=== PATIENT | female | born 1995 | race Caucasian/White ===

== ENCOUNTER → 2019-05-31 10:53 | Outpatient (BNVA) | payer MEDICAID, SELFPAY | PROVIDERS: Family Provider Registered Nurse; Visit Provider Social Worker | DX: F41.1 Generalized anxiety disorder (principal); F43.12 Post-traumatic stress disorder, chronic | CPT/HCPCS: 90834 ==

== ENCOUNTER → 2019-06-09 14:58 | Outpatient (BNVA) | payer MEDICAID, SELFPAY | PROVIDERS: Family Provider Registered Nurse; PCP Registered Nurse; Visit Provider Social Worker | DX: F41.1 Generalized anxiety disorder (principal); F43.12 Post-traumatic stress disorder, chronic | CPT/HCPCS: 90834 ==

== ENCOUNTER → 2019-08-02 12:37 | Outpatient (BNVA) | payer MEDICAID, SELFPAY | PROVIDERS: Family Provider Registered Nurse; PCP Registered Nurse; Visit Provider Social Worker | DX: F41.1 Generalized anxiety disorder (principal); F43.12 Post-traumatic stress disorder, chronic | CPT/HCPCS: 90834 ==

== ENCOUNTER → 2019-08-18 10:21 | Outpatient (BNVA) | payer MEDICAID, SELFPAY | PROVIDERS: Family Provider Registered Nurse; PCP Registered Nurse; Visit Provider Social Worker | DX: F41.1 Generalized anxiety disorder (principal); F43.12 Post-traumatic stress disorder, chronic | CPT/HCPCS: 90834 ==

== ENCOUNTER → 2019-09-01 08:00 | Outpatient (BNVA) | payer MEDICAID, SELFPAY | PROVIDERS: Family Provider Registered Nurse; PCP Registered Nurse; Visit Provider Social Worker | DX: F41.1 Generalized anxiety disorder (principal); F43.12 Post-traumatic stress disorder, chronic | CPT/HCPCS: 90834 ==

== ENCOUNTER → 2019-09-20 08:02 | Outpatient (BNVA) | payer MEDICAID, SELFPAY | PROVIDERS: Family Provider Registered Nurse; PCP Registered Nurse; Visit Provider Social Worker | DX: F41.1 Generalized anxiety disorder (principal); F43.12 Post-traumatic stress disorder, chronic | CPT/HCPCS: 90834 ==

== ENCOUNTER → 2019-10-04 08:03 | Outpatient (BNVA) | payer MEDICAID, SELFPAY | PROVIDERS: Family Provider Registered Nurse; PCP Registered Nurse; Visit Provider Social Worker | DX: F41.1 Generalized anxiety disorder (principal); F43.12 Post-traumatic stress disorder, chronic | CPT/HCPCS: 90834 ==

== ENCOUNTER → 2020-01-05 08:50 | Outpatient (BNVA) | payer MEDICAID, SELFPAY | PROVIDERS: Family Provider Registered Nurse; PCP Registered Nurse; Visit Provider Counselor Professional | DX: F41.1 Generalized anxiety disorder (principal); F43.12 Post-traumatic stress disorder, chronic | CPT/HCPCS: 90834 ==

== ENCOUNTER → 2020-01-19 08:35 | Outpatient (BNVA) | payer MEDICAID, SELFPAY | PROVIDERS: Family Provider Registered Nurse; PCP Registered Nurse; Visit Provider Counselor Professional | DX: F41.1 Generalized anxiety disorder (principal); F31.9 Bipolar disorder, unspecified | CPT/HCPCS: 90832 ==

== ENCOUNTER → 2020-02-01 09:49 | Outpatient (BNVA) | payer MEDICAID, SELFPAY | PROVIDERS: Family Provider Registered Nurse; PCP Registered Nurse; Visit Provider Psychiatry & Neurology Psychiatry | DX: F31.32 Bipolar disorder, current episode depressed, moderate; F43.10 Post-traumatic stress disorder, unspecified; F41.0 Panic disorder [episodic paroxysmal anxiety] | CPT/HCPCS: 90792 ==

== ENCOUNTER → 2020-03-03 07:58 | Outpatient (BNVA) | payer MEDICAID, SELFPAY | PROVIDERS: Family Provider Registered Nurse; PCP Registered Nurse; Visit Provider Psychiatry & Neurology Psychiatry | DX: F31.32 Bipolar disorder, current episode depressed, moderate (principal); Z72.820 Sleep deprivation; F43.10 Post-traumatic stress disorder, unspecified | CPT/HCPCS: 99213 ==

== ENCOUNTER → 2020-09-04 07:49 | Outpatient (BNVA) | payer MEDICAID, SELFPAY | PROVIDERS: Family Provider Registered Nurse; PCP Registered Nurse; Visit Provider Psychiatry & Neurology Psychiatry | DX: F43.10 Post-traumatic stress disorder, unspecified (principal); F31.32 Bipolar disorder, current episode depressed, moderate; Z72.820 Sleep deprivation | CPT/HCPCS: 99213 ==

== ENCOUNTER → 2020-10-31 14:45 | Outpatient (BNVA) | payer OTHER, SELFPAY | PROVIDERS: Family Provider Registered Nurse; PCP Registered Nurse; Visit Provider Psychiatry & Neurology Psychiatry | DX: F31.32 Bipolar disorder, current episode depressed, moderate (principal); Z72.820 Sleep deprivation; F43.10 Post-traumatic stress disorder, unspecified | CPT/HCPCS: 99214 ==

== ENCOUNTER 2020-11-11 11:23 | Emergency (ER) | payer MEDICAID, SELFPAY ==
[2020-11-11 11:37] VITALS: BP 125/88; PULSE 70; RESP 18; TEMP 36.7; O2SAT 99; BMI 25.6
--- NOTE | 2020-11-11 11:45 | W.ED.GENADLT ---
HPI - General Adult General: Chief complaint: Weakness Stated complaint: DIZZY, TIRED Time Seen by Provider: 11/11/20 11:34 Source: patient Mode of arrival: ambulatory Limitations: no limitations History of Present Illness: HPI narrative: Patient is a 25-year-old female here for concerns of possible carbon monoxide exposure. Patient states she was staying at a friend's house with two other girlfriends and when they awoke this morning they all had complaints of a headache, dizziness, and weakness. They later realized that a gas stove had been left on all night. Patient is alert and oriented upon arrival and ambulating to her room without difficulty. Onset (ago): hour(s) Severity: mild Associated symptoms: Reports headache(s); Deny chest pain, dyspnea, nausea, rash, palpitations, syncope or vomiting Treatments prior to arrival: none Review of Systems Const: Reports: fatigue; Denies: fever(s), chills or body aches Eyes: Denies: change in vision, blurry vision, photophobia, eye discomfort, eye discharge, floaters or seeing flashes ENMT: Denies: throat pain, odynophagia, nasal discharge or nasal congestion Card: Reports: lightheadedness; Denies: chest pain, palpitations, irregular heart rhythm, edema, syncope, pre-syncope, dyspnea on exertion or leg pain with exertion Resp: Denies: dyspnea, productive cough, non-productive cough or chest congestion GI: Denies: abdominal pain, nausea, vomiting or diarrhea Musc: Denies: neck pain or back pain Skin/Breast: Denies: rash Neuro: Reports: headache(s), dizziness and other; Denies: numbness in extremities, weakness in extremities, sensory changes, lack of coordination or difficulty walking PFS ED PFSH: Medical History Asthma Diagnosed as a child and she used inhalers and nebulizers. Denies any hospitalizations or intubations for asthma. Uses her inhaler once or twice a month-worse during allergy season and when it is very hot. Bipolar disorder And PTSD diagnosed in 2019 managed by behavioral health care on medication. She also does therapy there. 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 Patient was 32 weeks and presented to labor and delivery in labor and made cervical change from 5 cm to 8 cm in one hour. As baby was breech delivery was performed. Abnormal uterus was noted at time of . Right cavity of uterus appeared to be not present and only the left side of the uterine cavity was noted. Normal tubes and ovaries bilaterally. Baby girl weighing 3 lbs. 3 oz. was born and should to [place]. Baby's head was laterally compressed likely secondary to the cavity shape. Hx of tonsillectomy (~2009) And Adinoids Family History Grandmother Uterine cancer Paternal--dx age 30's Diabetes paternal Family/Other Uterine cancer Paternal Aunt---dx age 40's Family/Other Uterine cancer Paternal Cousin--dx age 20's Grandfather Stroke Paternal Diabetes paternal Father Hypertension Denies family history of Colon cancer Ovarian cancer Heart disease Hypercholesteremia Breast cancer Thyroid disease Female Reproductive History: Date of last menstrual period: 11/06/20 Physical Exam Const: COMMON NORMALS: no acute distress, average body habitus, patient oriented x3, no limitations, healthy appearing, alert and well nourished GENERAL APPEARANCE: cooperative ORIENTATION/CONSCIOUSNESS: Yes awake, Yes oriented to person, Yes oriented to place and Yes oriented to time HENMT: COMMON NORMALS: normocephalic and atraumatic HEAD & SCALP: normocephalic and atraumatic Eye: GENERAL EYE: appearance normal, both eyes and all related structures Resp: COMMON NORMALS: normal respiratory effort and clear to auscultation bilaterally AUSCULTATION: clear to auscultation bilaterally Cardio: COMMON NORMALS: regular rate and regular rhythm RATE: regular rate RHYTHM: regular rhythm Extremity: GENERAL: Yes normal exam except as noted Neuro: COMMON NORMALS: patient oriented x3 SENSORIUM/ORIENTATION: Yes alert, Yes oriented to person, Yes oriented to place and Yes oriented to time Skin: COMMON NORMALS: no rashes or lesions noted GENERAL SKIN EXAM: no rashes or lesions noted Course Vital Signs: Vital signs: Vital Signs Temperature 98.0 F 11/11/20 11:37 Pulse Rate 82 11/11/20 11:51 Respiratory Rate 18 11/11/20 11:37 Blood Pressure 115/77 11/11/20 11:51 Pulse Oximetry 97 11/11/20 11:51 MDM - General Adult MDM Narrative: Medical decision making narrative: Patient's ABG is non-concerning. She has a normal carboxyhemoglobin level. Discussed with both Dr. Elkins and Dr. Sierra who both do not feel any further management is indicated from the ED. Patient is allowed home with return to ED precautions. Lab Data: Attestation: I reviewed the patient's lab results. Labs: Lab Results 11/11/20 Range/Units 11:40 Specimen Type Arterial Sample Site Radial, left ABG pH 7.46 H (7.35-7.45) ABG pCO2 34.3 L (35-45) mmHg ABG pO2 121.0 H (80.0-100.0) mmH g ABG HCO3 24.2 (22-26) mmol/L ABG O2 Saturation 99.6 ABG Base Excess 0.8 (-2.0-2.0) mmol/ L Jassi Test Pos A-a O2 Gradient Not Reportable Hematocrit 43.6 (37-47) % Hgb O2 Saturation 97.7 (95-100) % Carboxyhemoglobin 1.2 (0.4-20.1) %THgb Methemoglobin 0.7 (0.4-1.5) % Total Hemoglobin 14.2 (12-16) g/dL Sodium 143.0 (131-143) mmol/L Potassium 4.0 (3.5-5.0) mmol/L Glucose 102.0 (70-115) mg/dL Ionized Calcium 1.1 (1.1-1.4) mmol/L O2 Delivery Device Room air FiO2 21.0 % 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
[2020-11-11 11:51] VITALS: BP 115/77; PULSE 82; O2SAT 97
[2020-11-11 11:52] LABS: ABG PCO2 34.3 mmHg (35-45); ABG PH Result 7.46 (7.35-7.45); Arterial Blood Gas Hematocrit 43.6 % (37-47); Base Excess ABG 0.8 mmol/L (-2.0-2.0); Blood Gas Allen Test Pos; Blood Gas Operator Identificat MONRO; Blood Gas Sample Site Radial, left; Blood Gas Sample Type Arterial; Carboxyhemoglobin 1.2 %THgb (0.4-20.1); HCO3 ABG 24.2 mmol/L (22-26); HGB O2 Sat 97.7 % (95-100); Ionized Calcium Level - ABG 1.1 mmol/L (1.1-1.4); Methemoglobin 0.7 % (0.4-1.5); Oxygen Device ROOM AIR; Oxygen Saturation ABG 99.6; Total Hemoglobin 14.2 g/dL (12-16)
== END 2020-11-11 13:10 | disposition home or self-care (01) ==
PROVIDERS: Emergency Provider Physician Assistant; PCP Registered Nurse
DX: Z77.29 Contact with and (suspected) exposure to other hazardous substances (principal)
CPT/HCPCS: 36600; 80051; 82330; 82805; 99282

== ENCOUNTER → 2020-11-21 15:47 | Outpatient (BNVA) | payer MEDICAID, SELFPAY | PROVIDERS: PCP Registered Nurse; Visit Provider Obstetrics & Gynecology | DX: R87.612 Low grade squamous intraepithelial lesion on cytologic smear of cervix (LGSIL) (principal) | CPT/HCPCS: 81025; 88305 ==

== ENCOUNTER → 2021-01-23 14:18 | Outpatient (BNVA) | payer OTHER, MEDICAID, SELFPAY | PROVIDERS: PCP Registered Nurse; Visit Provider Counselor Mental Health | DX: F41.1 Generalized anxiety disorder (principal); F31.9 Bipolar disorder, unspecified | CPT/HCPCS: 90834 ==

== ENCOUNTER → 2021-01-30 08:03 | Outpatient (BNVA) | payer OTHER, SELFPAY | PROVIDERS: PCP Registered Nurse; Visit Provider Psychiatry & Neurology Psychiatry | DX: F31.32 Bipolar disorder, current episode depressed, moderate (principal); F43.10 Post-traumatic stress disorder, unspecified | CPT/HCPCS: 99214 ==

== ENCOUNTER → 2021-02-06 15:17 | Outpatient (BNVA) | payer OTHER, SELFPAY | PROVIDERS: PCP Registered Nurse; Visit Provider Counselor Mental Health | DX: F41.1 Generalized anxiety disorder (principal); F31.9 Bipolar disorder, unspecified | CPT/HCPCS: 90834 ==

== ENCOUNTER → 2021-02-14 08:47 | Outpatient (BNVA) | payer OTHER, SELFPAY | PROVIDERS: PCP Registered Nurse; Visit Provider Counselor Mental Health | DX: F41.1 Generalized anxiety disorder (principal); F31.0 Bipolar disorder, current episode hypomanic | CPT/HCPCS: 90834 ==

== ENCOUNTER → 2021-02-16 11:14 | Outpatient (BNVA) | payer OTHER, SELFPAY | PROVIDERS: PCP Registered Nurse; Visit Provider Psychiatry & Neurology Psychiatry | DX: F31.32 Bipolar disorder, current episode depressed, moderate (principal); F43.10 Post-traumatic stress disorder, unspecified | CPT/HCPCS: 96372; 99214 ==

== ENCOUNTER → 2021-02-28 11:45 | Outpatient (BNVA) | payer OTHER, SELFPAY | PROVIDERS: PCP Registered Nurse; Visit Provider Counselor Mental Health | DX: F41.1 Generalized anxiety disorder (principal); F31.9 Bipolar disorder, unspecified | CPT/HCPCS: 90834 ==

== ENCOUNTER → 2021-03-07 11:49 | Outpatient (BNVA) | payer OTHER, SELFPAY | PROVIDERS: PCP Registered Nurse; Visit Provider Counselor Mental Health | DX: F41.1 Generalized anxiety disorder (principal); F31.9 Bipolar disorder, unspecified | CPT/HCPCS: 90837; 90834 ==

== ENCOUNTER → 2021-03-14 13:46 | Outpatient (BNVA) | payer OTHER, SELFPAY | PROVIDERS: PCP Registered Nurse; Visit Provider Counselor Mental Health | DX: F41.1 Generalized anxiety disorder (principal); F31.9 Bipolar disorder, unspecified | CPT/HCPCS: 90837; 90834 ==

== ENCOUNTER → 2021-03-16 12:15 | Outpatient (BNVA) | payer OTHER, SELFPAY | PROVIDERS: PCP Registered Nurse; Visit Provider Psychiatry & Neurology Psychiatry | DX: F31.32 Bipolar disorder, current episode depressed, moderate (principal); F43.10 Post-traumatic stress disorder, unspecified | CPT/HCPCS: 96372; 99214 ==

== ENCOUNTER → 2021-03-22 10:46 | Outpatient (BNVA) | payer OTHER, SELFPAY | PROVIDERS: PCP Registered Nurse; Visit Provider Counselor Mental Health | DX: F41.1 Generalized anxiety disorder (principal); F31.9 Bipolar disorder, unspecified | CPT/HCPCS: 90837; 90834 ==

== ENCOUNTER → 2021-04-05 08:47 | Outpatient (BNVA) | payer OTHER, SELFPAY | PROVIDERS: PCP Registered Nurse; Visit Provider Counselor Mental Health | DX: F41.1 Generalized anxiety disorder (principal); F31.9 Bipolar disorder, unspecified | CPT/HCPCS: 90837; 90834 ==

== ENCOUNTER → 2021-04-19 08:45 | Outpatient (BNVA) | payer OTHER, SELFPAY | PROVIDERS: PCP Registered Nurse; Visit Provider Counselor Mental Health | DX: F41.1 Generalized anxiety disorder (principal); F31.9 Bipolar disorder, unspecified | CPT/HCPCS: 90834 ==

== ENCOUNTER → 2021-04-20 09:13 | Outpatient (BNVA) | payer OTHER, SELFPAY | PROVIDERS: PCP Registered Nurse; Visit Provider Psychiatry & Neurology Psychiatry | DX: F31.32 Bipolar disorder, current episode depressed, moderate (principal); F43.10 Post-traumatic stress disorder, unspecified | CPT/HCPCS: 96372; 99214 ==

== ENCOUNTER → 2021-05-01 07:46 | Outpatient (BNVA) | payer OTHER, SELFPAY | PROVIDERS: PCP Registered Nurse; Visit Provider Counselor Mental Health | DX: F31.32 Bipolar disorder, current episode depressed, moderate (principal) | CPT/HCPCS: 90834 ==

== ENCOUNTER → 2021-05-09 09:46 | Outpatient (BNVA) | payer OTHER, SELFPAY | PROVIDERS: PCP Registered Nurse; Visit Provider Counselor Mental Health | DX: F41.1 Generalized anxiety disorder (principal); F31.9 Bipolar disorder, unspecified | CPT/HCPCS: 90837; 90834 ==

== ENCOUNTER → 2021-05-16 07:52 | Outpatient (BNVA) | payer OTHER, SELFPAY | PROVIDERS: PCP Registered Nurse; Visit Provider Counselor Mental Health | DX: F41.1 Generalized anxiety disorder (principal); F31.9 Bipolar disorder, unspecified | CPT/HCPCS: 90837; 90834 ==

== ENCOUNTER → 2021-05-24 11:14 | Outpatient (BNVA) | payer OTHER, SELFPAY | PROVIDERS: PCP Registered Nurse; Visit Provider Psychiatry & Neurology Psychiatry | DX: F31.32 Bipolar disorder, current episode depressed, moderate (principal); F43.10 Post-traumatic stress disorder, unspecified | CPT/HCPCS: 96372; 99213 ==

== ENCOUNTER → 2021-05-25 09:45 | Outpatient (BNVA) | payer OTHER, SELFPAY | PROVIDERS: PCP Registered Nurse; Visit Provider Counselor Mental Health | DX: F41.1 Generalized anxiety disorder (principal); F31.9 Bipolar disorder, unspecified | CPT/HCPCS: 90837; 90834 ==

== ENCOUNTER → 2021-06-04 07:46 | Outpatient (BNVA) | payer OTHER, SELFPAY | PROVIDERS: PCP Registered Nurse; Visit Provider Counselor Mental Health | DX: F31.32 Bipolar disorder, current episode depressed, moderate (principal) | CPT/HCPCS: 90834 ==

== ENCOUNTER → 2021-06-11 08:44 | Outpatient (BNVA) | payer OTHER, SELFPAY | PROVIDERS: PCP Registered Nurse; Visit Provider Counselor Mental Health | DX: F31.32 Bipolar disorder, current episode depressed, moderate (principal) | CPT/HCPCS: 90837; 90834 ==

== ENCOUNTER → 2021-06-21 08:44 | Outpatient (BNVA) | payer OTHER, SELFPAY | PROVIDERS: PCP Registered Nurse; Visit Provider Counselor Mental Health | DX: F31.32 Bipolar disorder, current episode depressed, moderate (principal); F42.9 Obsessive-compulsive disorder, unspecified | CPT/HCPCS: 90834 ==

== ENCOUNTER → 2021-06-22 11:11 | Outpatient (BNVA) | payer OTHER, SELFPAY | PROVIDERS: PCP Registered Nurse; Visit Provider Psychiatry & Neurology Psychiatry | DX: F43.10 Post-traumatic stress disorder, unspecified (principal); Z03.89 Encounter for observation for other suspected diseases and conditions ruled out; Z79.899 Other long term (current) drug therapy; F31.32 Bipolar disorder, current episode depressed, moderate | CPT/HCPCS: 80053; 80061; 83036; 84443; 85025; 99214 ==

== ENCOUNTER → 2021-07-06 07:46 | Outpatient (BNVA) | payer OTHER, SELFPAY | PROVIDERS: PCP Registered Nurse; Visit Provider Counselor Mental Health | DX: F31.32 Bipolar disorder, current episode depressed, moderate (principal) | CPT/HCPCS: 90834 ==

== ENCOUNTER → 2021-07-12 08:42 | Outpatient (BNVA) | payer OTHER, SELFPAY | PROVIDERS: PCP Registered Nurse; Visit Provider Counselor Mental Health | DX: F31.32 Bipolar disorder, current episode depressed, moderate (principal) | CPT/HCPCS: 90834 ==

== ENCOUNTER → 2021-07-23 09:46 | Outpatient (BNVA) | payer OTHER, SELFPAY | PROVIDERS: PCP Registered Nurse; Visit Provider Counselor Mental Health | DX: F31.32 Bipolar disorder, current episode depressed, moderate (principal) | CPT/HCPCS: 90834 ==

== ENCOUNTER → 2021-08-17 10:46 | Outpatient (BNVA) | payer OTHER, SELFPAY | PROVIDERS: PCP Registered Nurse; Visit Provider Counselor Mental Health | DX: F31.32 Bipolar disorder, current episode depressed, moderate (principal) | CPT/HCPCS: 90837; 90834 ==

== ENCOUNTER → 2021-08-31 10:47 | Outpatient (BNVA) | payer OTHER, SELFPAY | PROVIDERS: PCP Registered Nurse; Visit Provider Counselor Mental Health | DX: F31.32 Bipolar disorder, current episode depressed, moderate (principal) | CPT/HCPCS: 90834 ==

== ENCOUNTER → 2021-09-04 10:43 | Outpatient (BNVA) | payer OTHER, SELFPAY | PROVIDERS: PCP Registered Nurse; Visit Provider Psychiatry & Neurology Psychiatry | DX: F31.32 Bipolar disorder, current episode depressed, moderate (principal); Z03.89 Encounter for observation for other suspected diseases and conditions ruled out; Z79.899 Other long term (current) drug therapy | CPT/HCPCS: 99214 ==

== ENCOUNTER → 2021-09-07 10:45 | Outpatient (BNVA) | payer OTHER, SELFPAY | PROVIDERS: PCP Registered Nurse; Visit Provider Counselor Mental Health | DX: F43.10 Post-traumatic stress disorder, unspecified (principal); F31.32 Bipolar disorder, current episode depressed, moderate | CPT/HCPCS: 90834 ==

== ENCOUNTER → 2021-09-14 11:46 | Outpatient (BNVA) | payer OTHER, SELFPAY | PROVIDERS: PCP Registered Nurse; Visit Provider Counselor Mental Health | DX: F43.12 Post-traumatic stress disorder, chronic (principal); F31.32 Bipolar disorder, current episode depressed, moderate; F43.10 Post-traumatic stress disorder, unspecified | CPT/HCPCS: 90834 ==

== ENCOUNTER → 2021-09-21 10:45 | Outpatient (BNVA) | payer OTHER, SELFPAY | PROVIDERS: PCP Registered Nurse; Visit Provider Counselor Mental Health | DX: F43.12 Post-traumatic stress disorder, chronic (principal); F31.32 Bipolar disorder, current episode depressed, moderate; F43.10 Post-traumatic stress disorder, unspecified | CPT/HCPCS: 90837; 90834 ==

== ENCOUNTER → 2021-09-28 08:45 | Outpatient (BNVA) | payer OTHER, SELFPAY | PROVIDERS: PCP Registered Nurse; Visit Provider Counselor Mental Health | DX: F31.32 Bipolar disorder, current episode depressed, moderate (principal); F43.12 Post-traumatic stress disorder, chronic | CPT/HCPCS: 90834 ==

== ENCOUNTER → 2021-10-05 10:46 | Outpatient (BNVA) | payer OTHER, MEDICAID, SELFPAY | PROVIDERS: PCP Registered Nurse; Visit Provider Counselor Mental Health | DX: F31.32 Bipolar disorder, current episode depressed, moderate (principal) | CPT/HCPCS: 90834 ==

== ENCOUNTER 2021-10-07 16:23 | Emergency (ER) | payer MEDICAID, SELFPAY ==
[2021-10-07 16:41] VITALS: BP 118/81; PULSE 120; RESP 16; TEMP 37.4; O2SAT 99; BMI 28.7
--- NOTE | 2021-10-07 17:05 | ED_ITS ---
HPI - Skin/Abscess/Foreign Bdy General: Chief complaint: Skin/Abscess/Foreign Body Stated complaint: Says she has a cyst on her tailbone Time Seen by Provider: 10/07/21 17:04 History of Present Illness: 26-year-old female comes in today with complaints of tenderness and pain to the cleft of the left buttocks. Patient was seen 2 days ago and started on Augmentin and has had minimal relief since that time. Patient appears nontoxic. Patient appears in moderate pain. Associated symptoms: Deny fever(s) Review of Systems General: Reports: 10 or more systems reviewed and unremarkable except in HPI and below Const: Reports: malaise; Denies: fever(s) Card: Denies: chest pain Resp: Denies: dyspnea Musc: Denies: neck pain Skin/Breast: Reports: erythema PFS ED PFSH: Medical History (Updated 10/07/21 @ 17:37 by WALTER Bustamante) Asthma Diagnosed as a child and she used inhalers and nebulizers. Denies any hospitalizations or intubations for asthma. Uses her inhaler once or twice a month-worse during allergy season and when it is very hot. Bipolar disorder And PTSD diagnosed in 2019 managed by behavioral health care on medication. She also does therapy there. 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 Patient was 32 weeks and presented to labor and delivery in labor and made cervical change from 5 cm to 8 cm in one hour. As baby was breech delivery was performed. Abnormal uterus was noted at time of . Right cavity of uterus appeared to be not present and only the left side of the uterine cavity was noted. Normal tubes and ovaries bilaterally. Baby girl weighing 3 lbs. 3 oz. was born and should to [place]. Baby's head was laterally compressed likely secondary to the cavity shape. Hx of tonsillectomy (~2009) And Adinoids Family History Grandmother Uterine cancer Paternal--dx age 30's Diabetes paternal Family/Other Uterine cancer Paternal Aunt---dx age 40's Family/Other Uterine cancer Paternal Cousin--dx age 20's Grandfather Stroke Paternal Diabetes paternal Father Hypertension Denies family history of Colon cancer Ovarian cancer Heart disease Hypercholesteremia Breast cancer Thyroid disease Social History (Updated 04/20/21 @ 09:30 by Kennedi Ron) Smoking and tobacco status: current every day smoker Female Reproductive History: Date of last menstrual period: 09/02/21 Physical Exam Const: COMMON NORMALS: alert HENMT: HEAD & SCALP: normal to inspection Neck/C-Spine: COMMON NORMALS: full ROM Resp: COMMON NORMALS: normal respiratory effort and clear to auscultation bilaterally AUSCULTATION: clear to auscultation bilaterally Cardio: COMMON NORMALS: regular rate RATE: regular rate GI: COMMON NORMALS: non-tender Back/Pelvis: COMMON NORMALS: thoracic and lumbar spine normal to inspection Extremity: COMMON NORMALS: normal to inspection Neuro: SENSORIUM/ORIENTATION: Yes alert Skin: GENERAL SKIN EXAM: erythema (Left cleft of buttocks approximately 5 cm, central fluctuance) Procedures Abscess I/D Site: hung-rectal (Left cleft of buttock) Side (if applicable): left Local Anesthetic: lidocaine 2% Amount of anesthesia used (mL): 5 Technique: incised with #11 blade Amount of fluid expressed (mL): 4 Irrigation: Yes Packing used?: none Course Vital Signs: Vital signs: Vital Signs Temperature 99.3 F 10/07/21 16:41 Pulse Rate 120 H 10/07/21 16:41 Respiratory Rate 16 10/07/21 16:41 Blood Pressure 118/81 10/07/21 16:41 Pulse Oximetry 99 10/07/21 16:41 MDM - Skin/Abscess/Foreign Bdy Medicial Decision Making 26-year-old female comes in today with redness and tenderness to the left cleft of the buttocks. On exam we know an area of erythema approximately 5 cm with some central fluctuance. Differential diagnosis includes abscess, pilonidal cyst, cellulitis. Under local anesthetic an incision was made and purulent drainage was discharged from the site. Mild bleeding was noted. Patient will be added Bactrim to her Augmentin for further coverage of staph. Patient was given a dose of hydrocodone. Recommend use Tylenol and ibuprofen for pain. Return to ER for worsening symptoms or new concerns. Discharge Plan Discharge Patient Disposition: Home Clinical Impression: Abscess of buttock, left Condition: Stable Prescriptions: New Bactrim DS 800-160 mg tablet 1 tab PO BID Qty: 10 0RF No Action trazodone 50 mg tablet 50 mg PO BEDTIME PRN (Reason: sleep) 30 Days Qty: 30 3RF amoxicillin-pot clavulanate 875-125 mg tablet 1 tab PO Q12H 10 Days Qty: 20 0RF hydrocodone-acetaminophen 5-325 mg tablet 1 tab PO Q8H PRN (Reason: pain) 5 Days Qty: 10 0RF Discharge Orders: Discharge ED (Routine); Ordered 10/07/21 Ordered By: Lance Mitchell Referrals: Luci Roque FNP [Primary Care Provider] - Discharge Diet: Usual diet Discharge Activity: Increase activity as tolerated Patient Instructions: Abscess Incision and Drainage (DC), Opioid Safety Activity Restrictions/Additional Instructions: Home and rest. Drink plenty of fluids. Use acetaminophen and ibuprofen to control pain. Use hydrocodone for severe pain. Follow-up with primary care for further instruction. Return to ER for new concerns. Coding Level of Care Code ED [employer] for Sergei Martinez
[2021-10-07] MEDS: sulfamethoxazole-trimeth DS 160-800 mg Tablet 1 TAB PO (17:50)
[2021-10-07] MEDS: HYDROcodone-acetaminophen 5-325 mg Tablet 1 TAB PO (17:50)
[2021-10-07 17:54] VITALS: BP 126/81; PULSE 96; RESP 18; TEMP 36.9; O2SAT 96
== END 2021-10-07 17:56 | disposition home or self-care (01) ==
PROVIDERS: Emergency Provider Nurse Practitioner Family; PCP Registered Nurse
DX: L02.31 Cutaneous abscess of buttock (principal)
CPT/HCPCS: 10060; 99283

== ENCOUNTER → 2021-11-13 14:39 | Outpatient (BNVA) | payer MEDICAID, SELFPAY | PROVIDERS: PCP Registered Nurse; Visit Provider Surgery | DX: L05.91 Pilonidal cyst without abscess (principal) | CPT/HCPCS: 99203 ==

== ENCOUNTER 2021-12-03 08:41 | Day surgery (SDC) | payer MEDICAID, SELFPAY ==
[2021-11-30 10:27] VITALS: BMI 29.2
[2021-12-03] VITALS (7 sets, daily range): BP systolic 97–125; BP diastolic 63–85; PULSE 78–98; RESP 12–18; TEMP 36.2–36.4; O2SAT 94–100
--- NOTE | 2021-12-03 08:56 | ANES.PREANE2 ---
Pre-Anesthetic Assessment Height/Weight: Height 1.57 m Weight 72.575 kg Preop Diagnosis: Pilonidal cyst Operation Date: 12/03/21 10:15 Proposed Procedures p Pilonidal Cystectomy 92563,L05.91(Not Applicable) - Yanick Warren DO Familial anesthetic complications: None Was Beta Mehnaz taken within 24 hours: N/A Was Clonidine taken within 24 hours: N/A Social Tobacco and No alcohol Exam alert, oriented x 3 and regular rate & rhythm diminished b/l Airway Submandibular: within normal limits Cervical ROM: within normal limits Mallampati: Class I Dentition: full History/ROS No significant complaints Pulmonary Asthma CV/HEM None reported None reported Hepatic None reported GI None reported Metabolic None reported Musc/skel Cyst Neuropsych Bipolar and None reported Anesthetic Plan ASA status: 3 Anesthesia: Anesthesia Evaluation and General Other: We discussed risk and benefits of general anesthesia including PONV, sore throat (sometimes severe), corneal abrasion, positioning and peripheral nerve injuries, life threatening allergic reaction, post operative ICU admission requiring prolonged intubation, stroke, heart attack, , and rare incidences of recall. Patient consents to proceed with general anesthesia. Today I conducted a brief goal based motivational smoking cessation intervention with the patient. We discussed the health risk of prolonged tobacco use, as well as the risk of hung-operative tobacco use and its impact on wound healing/post-op infections. We discussed various options for cessation including medications PO, patches and gum, counseling. We discussed the value of a quit date. Patient appreciated counseling, all questions answered. Risk of > 500 ml blood loss (7ml/kg in children): No Medications/Allergies Home Medications Medication Instructions Recorded Confirmed Last Taken Type trazodone 50 mg tablet 50 mg PO BEDTIME PRN sleep 30 days 06/22/21 11/30/21 Unknown Rx #30 tabs albuterol sulfate 90 mcg/actuation 2 puff inhalation PRN PRN Wheezing 12/03/21 12/03/21 Unknown History aerosol inhaler (ProAir HFA) lorazepam 0.5 mg tablet 0.5 mg PO PRN PRN Anxiety 12/03/21 12/03/21 Unknown History Allergies Allergy/AdvReac Type Severity Reaction Status Date / Time house dust Allergy Intermediate wattery Verified 11/30/21 10:26 eyes lactose Allergy Intermediate diahrrea Verified 11/30/21 10:26 [facility] Anesthesia Medical History Asthma Diagnosed as a child and she used inhalers and nebulizers. Denies any hospitalizations or intubations for asthma. Uses her inhaler once or twice a month-worse during allergy season and when it is very hot. Bipolar disorder And PTSD diagnosed in 2019 managed by behavioral health care on medication. She also does therapy there. 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 Patient was 32 weeks and presented to labor and delivery in labor and made cervical change from 5 cm to 8 cm in one hour. As baby was breech delivery was performed. Abnormal uterus was noted at time of . Right cavity of uterus appeared to be not present and only the left side of the uterine cavity was noted. Normal tubes and ovaries bilaterally. Baby girl weighing 3 lbs. 3 oz. was born and should to [place]. Baby's head was laterally compressed likely secondary to the cavity shape. Hx of tonsillectomy (~2009) And Adinoids Family History Grandmother Uterine cancer Paternal--dx age 30's Diabetes paternal Family/Other Uterine cancer Paternal Aunt---dx age 40's Family/Other Uterine cancer Paternal Cousin--dx age 20's Grandfather Stroke Paternal Diabetes paternal Father Hypertension Denies family history of Colon cancer Ovarian cancer Heart disease Hypercholesteremia Breast cancer Thyroid disease Social History Smoking and tobacco status: current every day smoker Female Reproductive History Date of last menstrual period: 09/02/21 Data Anesthesia Cardiac Studies: No Data to Display
[2021-12-03 09:25] LABS: OR HCG Qualitative Urine Negative (Negative)
[2021-12-03] MEDS: sodium chloride 0.9% 1,000 ML 30 ML IV (09:33)
--- NOTE | 2021-12-03 10:10 | W.PM.OPSUD ---
Surgery/Procedure H&P Update DATE OF PROCEDURE: December 03, 2021 DATE H&P PERFORMED: 11/13/21 CHANGES TO PREVIOUS DOCUMENTATION: none PREOP DIAGNOSIS: Pilonidal cyst PLANNED PROCEDURE: Operation Date: 12/03/21 10:15 Proposed Procedures p Pilonidal Cystectomy 68990,L05.91(Not Applicable) - Yanick Warren DO
[2021-12-03] MEDS: ceFAZolin 2,000 MG in sodium chloride 0.9% (plus) 50 ML 100 MG IV (11:06)
--- NOTE | 2021-12-03 12:44 | PM.OP ---
Operative Report Date of procedure: December 03, 2021 Pre-op diagnosis: Preop Diagnosis Pilonidal cyst Post-op diagnosis: same Procedure done: Excision of pilonidal cyst Specimens removed/disposition: Pilonidal cyst Surgeon: Dr. Yanick Warren DO Estimated blood loss: 10 Complications: None apparent Brief History: This is a very pleasant 26-year-old female who presents to my office with an infected pilonidal cyst. She underwent antibiotic therapy. Excision is indicated. The risks and benefits were explained and documented Procedure: The area was inspected prepped and draped in the usual sterile fashion. A timeout was performed. All present were in agreement. 2% lidocaine with epinephrine was used to anesthetize the area around the pilonidal cyst. A 10 cm elliptical excision was performed down to the sacrum. The anal sphincter was avoided. Specimen was removed en bloc and sent to pathology. Bovie cautery was used for hemostasis. 0 Vicryl was then used in interrupted fashion to approximate the fascia. Fanny was placed down into the wound. 2-0 Vicryl was then used in interrupted fashion to approximate the dermis. 3-0 nylon was used to close the skin in a vertical mattress interrupted fashion. Hemostasis was noted. Bacitracin and sterile dressing was applied. Patient tolerated the procedure well.
--- NOTE | 2021-12-03 14:15 | ANE.PACU2 ---
Inpatient post-anesthesia follow up: Airway intact: Yes Vital signs: Temperature 97.5 F Pulse Rate 90 Respiratory Rate 17 Blood Pressure 107/85 Pulse Oximetry 98 Oxygen Delivery Me thod Room Air Oxygen Flow Rate Fraction of Inspir ed Oxygen Hydration adequate: Yes Nausea and vomiting: No Pain level: 1 Mental status: Baseline
== END 2021-12-03 14:09 | disposition home or self-care (01) ==
PROVIDERS: Anesthesiology; PCP Registered Nurse; Visit Provider Surgery
PROC: (CPT 11770; principal; 2021-12-03 10:05)
DX: L05.01 Pilonidal cyst with abscess (principal); F17.200 Nicotine dependence, unspecified, uncomplicated
CPT/HCPCS: 11770; 81025; 84703; 88304; J1100; J1170; J1200; J2250; J2405; J2704; J2710; J3010; J3490; J7030

== ENCOUNTER → 2021-12-18 11:15 | Outpatient (BNVA) | payer OTHER, SELFPAY | PROVIDERS: PCP Registered Nurse; Visit Provider Nurse Practitioner Women's Health | DX: R87.612 Low grade squamous intraepithelial lesion on cytologic smear of cervix (LGSIL) (principal) | CPT/HCPCS: 87624 ==

== ENCOUNTER → 2021-12-24 08:06 | Outpatient (BNVA) | payer OTHER, SELFPAY | PROVIDERS: PCP Registered Nurse; Visit Provider Surgery | DX: Z98.890 Other specified postprocedural states (principal) | CPT/HCPCS: 99213 ==

== ENCOUNTER → 2022-01-25 11:45 | Outpatient (BNVA) | payer OTHER, SELFPAY | PROVIDERS: PCP Registered Nurse; Visit Provider Nurse Practitioner Women's Health | DX: N92.6 Irregular menstruation, unspecified (principal) | CPT/HCPCS: 84702 ==

== ENCOUNTER 2022-03-14 06:19 | Emergency (ER) | payer MEDICAID, SELFPAY ==
[2022-03-14 06:23] VITALS: BP 108/99; PULSE 129; RESP 19; TEMP 36.6; O2SAT 99; BMI 27.4
--- NOTE | 2022-03-14 06:26 | ED_ITS ---
HPI - Abdominal Pain General: Chief Complaint: Abdominal Pain Stated Complaint: abd pain Time Seen by Provider: 03/14/22 06:23 History of Present Illness: 26-year-old female presents with abdominal pain. She reports is been going on and off for the last 2 days. It is located around her umbilicus. She denies any nausea vomiting fever chills. Patient denies any diarrhea or constipation. Patient reports the pain does not radiate but stays right in that area. Associated Symptoms: Denies chills, constipation, diarrhea, dysuria, fever(s), nausea and vomiting Related Data: Date of Last Menstrual Period: 09/02/21 Review of Systems Const: Denies: fever(s), chills or body aches Eyes: Denies: change in vision or blurry vision ENMT: Denies: throat pain or ear or mastoid pain Card: Denies: chest pain, palpitations or lightheadedness Resp: Denies: dyspnea, productive cough or chest congestion GI: Reports: abdominal pain; Denies: nausea, vomiting, diarrhea or constipation : Denies: flank pain, difficulty voiding or dysuria Musc: Denies: neck pain or back pain Skin/Breast: Denies: rash or pruritus Neuro: Denies: headache(s) or dizziness PFSH ED PFSH: Medical History (Updated 03/14/22 @ 07:56 by Flakito Reed DO) Asthma Diagnosed as a child and she used inhalers and nebulizers. Denies any hospitalizations or intubations for asthma. Uses her inhaler once or twice a month-worse during allergy season and when it is very hot. Bipolar disorder And PTSD diagnosed in 2019 managed by behavioral health care on medication. She also does therapy there. 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 Patient was 32 weeks and presented to labor and delivery in labor and made cervical change from 5 cm to 8 cm in one hour. As baby was breech delivery was performed. Abnormal uterus was noted at time of . Right cavity of uterus appeared to be not present and only the left side of the uterine cavity was noted. Normal tubes and ovaries bilaterally. Baby girl weighing 3 lbs. 3 oz. was born and should to [place]. Baby's head was laterally compressed likely secondary to the cavity shape. Hx of tonsillectomy (~2009) And Adinoids Family History Grandmother Uterine cancer Paternal--dx age 30's Diabetes paternal Family/Other Uterine cancer Paternal Aunt---dx age 40's Family/Other Uterine cancer Paternal Cousin--dx age 20's Grandfather Stroke Paternal Diabetes paternal Father Hypertension Denies family history of Colon cancer Ovarian cancer Heart disease Hypercholesteremia Breast cancer Thyroid disease Social History Smoking and tobacco status: current every day smoker Female Reproductive History: Date of last menstrual period: 09/02/21 Physical Exam Const: COMMON NORMALS: no acute distress, patient oriented x3, alert and well nourished HENMT: COMMON NORMALS: hearing grossly normal bilaterally Eye: COMMON NORMALS: EOMs intact bilaterally and conjunctivae normal CONJUNCTIVA: Yes conjunctivae normal Neck/C-Spine: COMMON NORMALS: full ROM and supple Chest: COMMONS NORMALS: normal inspection of the chest Resp: COMMON NORMALS: normal respiratory effort, No use of accessory muscles and clear to auscultation bilaterally AUSCULTATION: clear to auscultation bilaterally Cardio: COMMON NORMALS: regular rhythm RATE: tachycardic RHYTHM: regular rhythm GI: COMMON NORMALS: Soft to palpation PALPATION: Yes Soft to palpation and Yes Tenderness to palpation present (GI) Details: other (Periumbilical) : COMMON NORMALS: Yes no CVA tenderness BLADDER/KIDNEY EXAM: Yes no CVA tenderness and No CVA tenderness Back/Pelvis: COMMON NORMALS: no CVA tenderness GENERAL BACK: No CVA tenderness and No warmth Extremity: COMMON NORMALS: normal to inspection, full ROM and capillary refill normal Neuro: COMMON NORMALS: patient oriented x3, moves all extremities and no focal motor deficits SENSORIUM/ORIENTATION: Yes alert Psych: COMMON NORMALS: mental status grossly normal, cooperative and normal affect Skin: COMMON NORMALS: no rashes or lesions noted and turgor normal GENERAL SKIN EXAM: no rashes or lesions noted and turgor normal Course Vital Signs: Vital signs: Vital Signs Temperature 97.9 F 03/14/22 06:23 Pulse Rate 77 03/14/22 07:26 Respiratory Rate 16 03/14/22 07:26 Blood Pressure 131/67 03/14/22 07:26 Pulse Oximetry 99 03/14/22 07:26 Oxygen Delivery Me thod 03/14/22 07:26 MDM - Abdominal Pain Medical Decision Making Patient CT shows large segment segment of distal ileum thickening. We will treat as infectious to begin with I discussed with her the need of possible follow-up for GI and scope. Patient to be treated with Cipro Flagyl. Also provided with a small amount of pain medicine. Patient stable and discharged home Lab Data : 03/14/22 06:34 03/14/22 06:34 Labs/Radiology: Radiology Impressions Abdomen/Pelvis CT 03/14/22 07:08 IMPRESSION: 1. Moderate distal ileum wall thickening in the lower abdomen and pelvis-over a 20 cm segment (series 3 images 52 to 69). These findings may be related to infectious etiology or inflammatory bowel disease/Crohn's disease. 2. Associated small amount of free fluid in the pelvic cul-de-sac. COMMENTS: Consistent with the [employer]'s Incidental Findings Committee white paper (J Am Luciana Radiol 2018): Any incidental renal lesion less than 1 cm or classified as too small to characterize, or any incidental cystic renal lesion characterized as simple-appearing, is likely benign. No follow-up imaging is recommended for these lesions per consensus recommendations based on imaging criteria. Laboratory Results WBC 13.6 10^3/uL (4.0-10.0) H 03/14/22 06:34 RBC 4.84 10^6/uL (4.1-5.3) 03/14/22 06:34 Hgb 14.9 g/dL (11.5-15.3) 03/14/22 06:34 Hct 44.6 % (37.0-47.0) 03/14/22 06:34 MCV 92.1 fl (81-99) 03/14/22 06:34 MCH 30.8 pg (28.0-34.0) 03/14/22 06:34 MCHC 33.4 g/dL (30.0-36.0) 03/14/22 06:34 RDW 12.4 % (12.1-15.1) 03/14/22 06:34 Plt Count 313 10^3/cmm (130-400) 03/14/22 06:34 MPV 9.4 fL (7.4-10.4) 03/14/22 06:34 Neut % (Auto) 62.5 % 03/14/22 06:34 Lymph % (Auto) 26.5 % 03/14/22 06:34 [place] % (Auto) 7.8 % 03/14/22 06:34 Eos % (Auto) 2.7 % 03/14/22 06:34 Baso % (Auto) 0.3 % 03/14/22 06:34 Neut # (Auto) 8.53 10^3/uL (1.8-7.7) H 03/14/22 06:34 Lymph # (Auto) 3.6 10^3/uL (0.8-4.8) 03/14/22 06:34 [place] # (Auto) 1.1 10^3/uL (0.2-0.9) H 03/14/22 06:34 Eos # (Auto) 0.4 10^3/uL (0.0-0.8) 03/14/22 06:34 Baso # (Auto) 0.0 10^3/uL (0.0-0.1) 03/14/22 06:34 Nucleated RBC % (auto) 0 % 03/14/22 06:34 Nucleated RBCs # 0.0 /100WBC 03/14/22 06:34 Sodium 139 mmol/L (136-145) 03/14/22 06:34 Potassium 3.5 mmol/L (3.5-5.1) 03/14/22 06:34 Chloride 100 mmol/L (98-107) 03/14/22 06:34 Carbon Dioxide 26 mmol/L (22-29) 03/14/22 06:34 Anion Gap 16.5 (5-19) 03/14/22 06:34 BUN 8 mg/dL (6-20) 03/14/22 06:34 Creatinine 0.7 mg/dL (0.5-0.9) 03/14/22 06:34 GFR Calculation 102.0 mL/min (90-130) 03/14/22 06:34 Glucose 106 mg/dL (65-115) 03/14/22 06:34 Calculated Osmolality 287 mOsm/kg (285-295) 03/14/22 06:34 Calcium 9.3 mg/dL (8.5-10.5) 03/14/22 06:34 Total Bilirubin 0.3 mg/dL (0.15-1.2) 03/14/22 06:34 AST 15 U/L (0-32) 03/14/22 06:34 ALT 14 U/L (0-33) 03/14/22 06:34 Alkaline Phosphatase 68 U/L (35-105) 03/14/22 06:34 C-Reactive Protein 20.1 mg/L (0.0-4.9) H 03/14/22 06:34 Total Protein 7.3 g/dL (6.6-8.7) 03/14/22 06:34 Albumin 4.1 g/dL (3.5-5.2) 03/14/22 06:34 Globulin 3.2 g/dL (1.3-4.6) 03/14/22 06:34 Lipase 43 U/L (13-60) 03/14/22 06:34 HCG, Qual Negative (Negative) 03/14/22 06:34 Urine Color Yellow (Yellow) 03/14/22 06:34 Urine Appearance Hazy (CLEAR) A 03/14/22 06:34 Urine pH 5 (5-7) 03/14/22 06:34 Ur Specific [place] 1.025 (1.005-1.030) 03/14/22 06:34 Urine Protein Neg (Negative) 03/14/22 06:34 Urine Glucose (UA) Norm (Normal) 03/14/22 06:34 Urine Ketones Negative (Negative) 03/14/22 06:34 Urine Blood Neg (Negative) 03/14/22 06:34 Urine Nitrate Negative (Negative) 03/14/22 06:34 Urine Bilirubin 1+ (Negative) H 03/14/22 06:34 Urine Urobilinogen Norm mg/dL (Negative) 03/14/22 06:34 Ur Leukocyte Esterase Trace (Negative) H 03/14/22 06:34 Urine RBC 0-4 /hpf (0-2) H 03/14/22 06:34 Urine WBC 5-10 /hpf (0-5) H 03/14/22 06:34 Ur Squamous Epith Cells 10-15 /hpf (0-5) H 03/14/22 06:34 Amorphous Sediment Not Reportable 03/14/22 06:34 Urine Bacteria 2+ /hpf (NONE) H 03/14/22 06:34 Urine Mucus 1+ /hpf 03/14/22 06:34 Discharge Plan Discharge Patient Disposition: Home Clinical Impression: Ileitis Condition: Stable Prescriptions: New tramadol 50 mg tablet 50 mg PO Q8H PRN (Reason: pain) Qty: 10 0RF ciprofloxacin HCl [Cipro] 500 mg tablet 500 mg PO Q12H Qty: 14 0RF ondansetron 4 mg tablet,disintegrating 4 mg PO Q6H PRN (Reason: nausea and vomiting) Qty: 20 0RF metronidazole 500 mg tablet 500 mg PO BID 7 Days Qty: 14 0RF No Action trazodone 50 mg tablet 50 mg PO BEDTIME PRN (Reason: sleep) 30 Days Qty: 30 3RF lorazepam 0.5 mg tablet 0.5 mg PO PRN PRN (Reason: Anxiety) albuterol sulfate [ProAir HFA] 90 mcg/actuation Hfa Aerosol Inhaler 2 puff INHALATION PRN PRN (Reason: Wheezing) Discharge Orders: Discharge ED (Routine); Ordered 03/14/22 Ordered By: Flakito Reed Referrals: Luci Roque FNP [Primary Care Provider] - Discharge Diet: Advance as tolerated and Clear Liquid Discharge Activity: Resume usual activity Patient Instructions: Opioid Safety, Pain Management, Enteritis (ED) Activity Restrictions/Additional Instructions: Please follow-up with your primary care provider early next week for recheck of symptoms and to arrange for a GI consultation with either inventory representative or general surgery. For further evaluation Coding Level of Care Code ED Php Developer for Amarilisg Fwd Exam Comprehensive
[2022-03-14 06:28] VITALS: PULSE 99; RESP 18; O2SAT 97
[2022-03-14 06:41] LABS: Basophils % 0.3 %; Eosinophils # 0.4 10^3/uL (0.0-0.8); Eosinophils % 2.7 %; Hematocrit 44.6 % (37.0-47.0); Hemoglobin 14.9 g/dL (11.5-15.3); Lymphocytes # 3.6 10^3/uL (0.8-4.8); Lymphocytes % 26.5 %; Mean Corpuscular HGB Conc 33.4 g/dL (30.0-36.0); Mean Corpuscular Hemoglobin 30.8 pg (28.0-34.0); Mean Corpuscular Volume 92.1 fl (81-99); Mean Platelet Volume 9.4 fL (7.4-10.4); Monocytes # 1.1 10^3/uL (0.2-0.9); Monocytes % 7.8 %; Neutrophils # 8.53 10^3/uL (1.8-7.7); Neutrophils % 62.5 %; Nucleated Red Blood Cells % 0 %; Platelet Count 313 10^3/cmm (130-400); Red Blood Count 4.84 10^6/uL (4.1-5.3); Red Cell Distribution Width 12.4 % (12.1-15.1); White Blood Count 13.6 10^3/uL (4.0-10.0)
--- NOTE | 2022-03-14 07:04 | PC.NURSE ---
Transfer of care REport given to DENISE Levine at shift change. All questions have been answered.
[2022-03-14 07:06] LABS: Alanine Aminotransferase 14 U/L (0-33); Albumin Level 4.1 g/dL (3.5-5.2); Alkaline Phosphatase 68 U/L (35-105); Anion Gap 16.5 (5-19); Aspartate Amino Transferase 15 U/L (0-32); Blood Urea Nitrogen 8 mg/dL (6-20); C Reactive Protein 20.1 mg/L (0.0-4.9); Calcium 9.3 mg/dL (8.5-10.5); Carbon Dioxide 26 mmol/L (22-29); Chloride 100 mmol/L (98-107); Globulin 3.2 g/dL (1.3-4.6); Glucose 106 mg/dL (65-115); HCG Qualitative Urine. Negative (Negative); Lipase 43 U/L (13-60); Osmolality Calculated 287 mOsm/kg (285-295); Potassium 3.5 mmol/L (3.5-5.1); Sodium 139 mmol/L (136-145); Total Bilirubin 0.3 mg/dL (0.15-1.2); Total Protein 7.3 g/dL (6.6-8.7)
--- NOTE | 2022-03-14 07:08 | CTR_ITS ---
PROCEDURE INFORMATION: Exam: CT Abdomen And Pelvis With Contrast Exam date and time: 03/14/2022 7:22 AM Age: 26 years old Clinical indication: Abdominal pain; Localized; Lower; Prior surgery; Surgery date: 6+ months; Surgery type: ; Additional info: R/O appy TECHNIQUE: Imaging protocol: Computed tomography of the abdomen and pelvis with contrast. Radiation optimization: All CT scans at this facility use at least one of these dose optimization techniques: automated exposure control; mA and/or kV adjustment per patient size (includes targeted exams where dose is matched to clinical indication); or iterative reconstruction. Contrast material: OMNI 350; Contrast volume: 100 ml; Contrast route: INTRAVENOUS (IV); COMPARISON: MR pelvis wo/w con [id number] 02/27/2017 2:51 PM RADIATION DOSE METRICS: Total DLP (mGy-cm): 578.13 FINDINGS: Lungs: The visualized portions of the lung bases are normal. Liver: Normal enhancement. No mass. Gallbladder and bile ducts: No calcified stones. No ductal dilation. Pancreas: Normal contour and enhancement. No ductal dilation. Spleen: Normal enhancement. No splenomegaly. Adrenal glands: Normal contour. No mass. Kidneys and ureters: No contour deforming renal masses. Simple left kidney mid zone anterior 1.5 x 1.5 cm cyst. No hydronephrosis or ureterectasis. Stomach and bowel: The noncontrast opacified stomach appears unremarkable. The noncontrast opacified loops of small bowel show moderate distal ileum wall thickening in the lower abdomen and pelvis-over a 20 cm segment (series 3 images 52 to 69). These findings may be related to infectious etiology or inflammatory bowel disease/Crohn's disease. The remaining noncontrast opacified small bowel loops show nonspecific mild prominence of some jejunal loops in the left upper abdominal region. The noncontrast opacified loops of colon show poor distension of the descending colon. Some gas and fecal material is seen in the rectosigmoid colon. The lack of orally administered contrast material limits assessment. Appendix: Normal caliber appendix is seen in the right upper pelvis region. Intraperitoneal space: Small amount of free fluid is seen in the pelvic cul-de-sac region. No free air. Vasculature: No abdominal aortic aneurysm. IVC and portal venous structures are unremarkable. Lymph nodes: No enlarged lymph nodes. Urinary bladder: The bladder is not well distended with relative wall prominence. Assessment is limited. If there is clinical concern for cystitis, recommend correlation with urinalysis findings. Reproductive: CT findings of uterine didelphys are seen (as noted on the MRI dated February 27, 2017). 2 separate cervicis and intrauterine cavities are seen. Bones/joints: No acute osseous abnormality seen. Soft tissues: Tiny umbilical hernia is seen, containing peritoneal fat. CT/CT abdomen pelvis w con* [id number] IMPRESSION: 1. Moderate distal ileum wall thickening in the lower abdomen and pelvis-over a 20 cm segment (series 3 images 52 to 69). These findings may be related to infectious etiology or inflammatory bowel disease/Crohn's disease. 2. Associated small amount of free fluid in the pelvic cul-de-sac. COMMENTS: Consistent with the [employer] [employer]'s Incidental Findings Committee white paper (J Am Luciana Radiol 2018): Any incidental renal lesion less than 1 cm or classified as too small to characterize, or any incidental cystic renal lesion characterized as simple-appearing, is likely benign. No follow-up imaging is recommended for these lesions per consensus recommendations based on imaging criteria.
[2022-03-14 07:26] VITALS: BP 131/67; PULSE 77; RESP 16; O2SAT 99
[2022-03-14] MEDS: iohexol 350 mg/mL 500 mL Btl (per mL) IV (07:26)
[2022-03-14 07:31] LABS: Add Urine Microscopic? YES; Bilirubin Urine 1+ (Negative); Blood Urine Neg (Negative); Glucose Urine UA Norm (Normal); Ketones Urine Negative (Negative); Leukocyte Esterase Urine Trace (Negative); Nitrate Urine Negative (Negative); Protein Urine Neg (Negative); RBC Urine 0-4 /hpf (0-2); Specific Gravity, Urine 1.025 (1.005-1.030); Urine Appearance Hazy (CLEAR); Urine Color Yellow (Yellow); Urobilinogen Urine Norm (Negative); pH Urine 5 (5-7)
[2022-03-14 07:32] LABS: Add Urine Culture? No; Bacteria Urine 2+ /hpf; Mucus Urine 1+ /hpf
[2022-03-14 08:41] VITALS: BP 112/69; PULSE 80; O2SAT 96
== END 2022-03-14 08:42 | disposition home or self-care (01) ==
PROVIDERS: Emergency Provider Student in an Organized Health Care Education/Training Program; PCP Registered Nurse
DX: K52.9 Noninfective gastroenteritis and colitis, unspecified (principal); F17.210 Nicotine dependence, cigarettes, uncomplicated
CPT/HCPCS: 74177; 80053; 81001; 81025; 83690; 85025; 86140; 99284; Q9967

== ENCOUNTER 2022-08-03 22:35 | Emergency (ER) | payer MEDICAID, SELFPAY ==
[2022-08-03 22:37] VITALS: BP 162/96; PULSE 130; RESP 20; TEMP 37; O2SAT 100
--- NOTE | 2022-08-03 22:53 | XRR_ITS ---
PROCEDURE INFORMATION: Exam: XR Chest Exam date and time: 08/03/2022 10:59 PM Age: 27 years old Clinical indication: Shortness of breath and wheezing; Additional info: SOB, wheezing TECHNIQUE: Imaging protocol: Radiologic exam of the chest. Views: 1 view. COMPARISON: CT abdomen pelvis w con* [id number] 03/14/2022 7:22 AM FINDINGS: Lungs: Unremarkable. No consolidation. Pleural spaces: Unremarkable. No pleural effusion. No pneumothorax. Heart/Mediastinum: Unremarkable. No cardiomegaly. Bones/joints: Unremarkable. XR/XR chest 1V portable [id number] IMPRESSION: No acute findings.
[2022-08-03] MEDS: LORazepam 2 mg/mL INJ 1 mL 0.5 MG IVP (23:10)
[2022-08-03 23:52] VITALS: PULSE 106; RESP 18; O2SAT 100
--- NOTE | 2022-08-04 00:30 | W.ED.SOB ---
HPI - SOB/Dyspnea General: Chief Complaint: Shortness of Breath/Dyspnea Stated Complaint: RESP. DISTRESS Time Seen by Provider: 08/03/22 22:39 Source: patient History of Present Illness: HPI Narrative: 27-year-old female with a history of asthma. She had been sick with a cough for couple of days. She had a fever 1 day she says a couple of days ago. None today. She became acutely short of breath and began coughing while with friends. She did not have access to her inhaler immediately. When she started coughing she says, she could not stop, and got more more short of breath. She presents somewhat improved after DuoNeb treatment, albuterol stacked treatment, and 20 mg of dexamethasone in route by EMS. She still having significant trouble. MD elicited complaint: shortness of breath and asthma attack Pertinent past history: asthma Onset (ago): minute(s) Context: recent illness Timing: constant and progressively worsening Severity: moderate Exacerbating factors: coughing Relieving factors: oxygen and bronchodilators Known history of: asthma Associated symptoms: Reports chest congestion, cough and dizziness; Deny abdominal pain, chest pain, diaphoresis, fever(s), nausea or vomiting Treatment prior to arrival: oxygen and bronchodilator Review of Systems Const: Denies: fever(s) or diaphoresis Eyes: Denies: change in vision ENMT: Denies: throat pain Card: Denies: chest pain Resp: Reports: dyspnea, non-productive cough and chest congestion GI: Denies: abdominal pain, nausea or vomiting Neuro: Reports: dizziness [facility] ED PFSH: Medical History Asthma Diagnosed as a child and she used inhalers and nebulizers. Denies any hospitalizations or intubations for asthma. Uses her inhaler once or twice a month-worse during allergy season and when it is very hot. Bipolar disorder And PTSD diagnosed in 2019 managed by behavioral health care on medication. She also does therapy there. 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 Patient was 32 weeks and presented to labor and delivery in labor and made cervical change from 5 cm to 8 cm in one hour. As baby was breech delivery was performed. Abnormal uterus was noted at time of . Right cavity of uterus appeared to be not present and only the left side of the uterine cavity was noted. Normal tubes and ovaries bilaterally. Baby girl weighing 3 lbs. 3 oz. was born and should to [place]. Baby's head was laterally compressed likely secondary to the cavity shape. Hx of tonsillectomy (~2009) And Adinoids Family History Grandmother Uterine cancer Paternal--dx age 30's Diabetes paternal Family/Other Uterine cancer Paternal Aunt---dx age 40's Family/Other Uterine cancer Paternal Cousin--dx age 20's Grandfather Stroke Paternal Diabetes paternal Father Hypertension Denies family history of Colon cancer Ovarian cancer Heart disease Hypercholesteremia Breast cancer Thyroid disease Social History Smoking and tobacco status: current every day smoker Physical Exam Const: COMMON NORMALS: no acute distress GENERAL APPEARANCE: anxious and ill appearing (mildly) HENMT: COMMON NORMALS: normocephalic, atraumatic and Normal external nose present HEAD & SCALP: normocephalic and atraumatic FACE & SINUS: normal facial exam and face symmetric NOSE: Normal external nose present Eye: COMMON NORMALS: Equal, round and reactive pupils present and EOMs intact bilaterally PUPIL: Yes Equal, round and reactive pupils present Neck/C-Spine: GENERAL: Yes trachea midline Chest: CHEST: Yes Symmetrical chest wall rise Resp: COMMON NORMALS: clear to auscultation bilaterally EFFORT & INSPECTION: Yes tachypneic and Yes labored AUSCULTATION: clear to auscultation bilaterally and diminished lung sounds Cardio: COMMON NORMALS: regular rhythm RATE: tachycardic RHYTHM: regular rhythm GI: COMMON NORMALS: Normal to inspection, nondistended, normoactive bowel sounds present Extremity: COMMON NORMALS: no pedal edema Neuro: ILENE COMA SCALE: document GCS findings [place] coma scale eye opening: Spontaneous Ilene coma scale verbal response: Orientated [place] coma scale motor response: Obey commands [place] coma scale total score: 15 SENSORY EXAM: Yes extremities (intact) Psych: COMMON NORMALS: speech normal SPEECH: Yes normal speech Skin: COMMON NORMALS: no rashes or lesions noted GENERAL SKIN EXAM: no rashes or lesions noted Course Vital Signs: Vital signs: Vital Signs Temperature 98.6 F 08/03/22 22:37 Pulse Rate 106 H 08/03/22 23:52 Respiratory Rate 18 08/03/22 23:52 Blood Pressure 162/96 08/03/22 22:37 Pulse Oximetry 100 08/03/22 23:52 Oxygen Delivery Me thod 08/03/22 23:52 Oxygen Flow Rate 2 08/03/22 23:52 MDM - SOB/Dyspnea Medical Decision Making Patient is significantly improved following albuterol and DuoNeb treatments by EMS. She has received 20 mg of dexamethasone in route as well. Here she was given 1 g of magnesium, and 0.5 mg of Ativan for anxiety. She feels much better. Her chest x-ray is negative. Saturations are normal. She is no longer tachycardic. She states that she has enough medication available and her rescue inhaler. She will go home on a steroid burst. Scheduled inhaler use for the next 24 hours then as needed. She knows to return for any worsening symptoms. Lab Data Labs/Radiology: Radiology Impressions Chest X-Ray 08/03/22 22:53 IMPRESSION: No acute findings. Laboratory Results SARS-CoV-2 Ag (Rapid) Negative (Negative) 08/03/22 23:24 Discharge Plan Discharge Patient Disposition: Home Clinical Impression: Asthma with exacerbation Condition: Stable Prescriptions: New Medrol (Denis) 4 mg tablets,dose pack See Rx Instructions .ROUTE .COMPLEX Qty: 21 0RF Rx Instructions: orally per package directions No Action trazodone 50 mg tablet 50 mg PO BEDTIME PRN (Reason: sleep) 30 Days Qty: 30 3RF lorazepam 0.5 mg tablet 0.5 mg PO PRN PRN (Reason: Anxiety) albuterol sulfate [ProAir HFA] 90 mcg/actuation Hfa Aerosol Inhaler 2 puff INHALATION PRN PRN (Reason: Wheezing) Cipro 500 mg tablet 500 mg PO Q12H Qty: 14 0RF ondansetron 4 mg tablet,disintegrating 4 mg PO Q6H PRN (Reason: nausea and vomiting) Qty: 20 0RF tramadol 50 mg tablet 50 mg PO Q8H PRN (Reason: pain) Qty: 10 0RF Discharge Orders: Discharge ED (Routine); Ordered 08/04/22 Ordered By: Stepan Silva Referrals: Luci Roque FNP [Primary Care Provider] - 1-3 days Patient Instructions: Asthma Exacerbation - Adult Activity Restrictions/Additional Instructions: Use your inhaler every 4 hours while awake for the next 24 hours, then as needed. Medication as directed. Return for any worsening symptoms such as shortness of breath, wheezing, etc. Coding Level of Care Code ED Patient Clerical Assistant for Sergei Martinez
[2022-08-04 01:51] LABS: SARS Covid-2 Antigen Negative (Negative)
== END 2022-08-04 00:48 | disposition home or self-care (01) ==
PROVIDERS: Emergency Provider Emergency Medicine; PCP Registered Nurse
DX: J45.901 Unspecified asthma with (acute) exacerbation (principal); Z20.822 Contact with and (suspected) exposure to COVID-19; F17.210 Nicotine dependence, cigarettes, uncomplicated
CPT/HCPCS: 71045; 87426; 96374; 96375; 99284; J2060; J3475

== ENCOUNTER 2023-09-11 14:50 | Outpatient (CLI) | payer MEDICAID, SELFPAY ==
--- NOTE | 2023-09-11 14:56 | US_ITS ---
WS: [id number] ULTRASOUND BREAST BILATERAL TECHNIQUE: Ultrasound bilateral breast focused area of concern. CLINICAL INFORMATION: BREAST PAIN/BREAST DISCHARGE COMPARISON: None. FINDINGS: RIGHT BREAST: Ultrasound subareolar RIGHT breast due to nipple discharge. Minimal ductal ectasia. No suspicious findings. LEFT BREAST: Ultrasound LEFT breast 1 to 5 o'clock position. Normal underlying parenchymal tissue. No suspicious findings. No cystic or solid lesions. Findings are benign. US/US breast BI limited* [id number] IMPRESSION: BI-RADS 2 benign Recommend annual screen mammography age 40
== END 2023-09-11 14:51 | disposition home or self-care (01) ==
LOC: RAD 14:51
PROVIDERS: PCP Registered Nurse; Visit Provider Registered Nurse
DX: N64.52 Nipple discharge (principal); R23.3 Spontaneous ecchymoses
CPT/HCPCS: 76642

== ENCOUNTER 2024-01-26 23:08 | Outpatient (CLI) | payer MEDICAID, SELFPAY ==
[2024-01-26 23:10] VITALS: BMI 28.3
[2024-01-26 23:23] VITALS: BP 138/92; PULSE 112
[2024-01-26 23:43] VITALS: BP 122/76; PULSE 93
[2024-01-26 23:58] VITALS: BP 120/68; PULSE 88
[2024-01-27 00:13] VITALS: BP 115/65; PULSE 86
[2024-01-27 00:28] VITALS: BP 113/69; PULSE 72
== END 2024-01-27 00:38 | disposition home or self-care (01) ==
LOC: OPOB 23:17 → OBGYN 23:18
PROVIDERS: PCP Registered Nurse; Visit Provider Family Medicine
DX: O26.899 Other specified pregnancy related conditions, unspecified trimester (principal); Z3A.00 Weeks of gestation of pregnancy not specified; R10.9 Unspecified abdominal pain
CPT/HCPCS: 99211

== ENCOUNTER 2024-07-08 04:34 | Observation (INO) | payer MEDICAID, SELFPAY ==
[2024-07-08] VITALS (19 sets, daily range): BP systolic 99–132; BP diastolic 58–87; PULSE 52–95; RESP 16–18; TEMP 36.2–36.5; O2SAT 94–100; BMI 28.0; BMI 28.9
--- NOTE | 2024-07-08 04:46 | W.ED.ABDPA2 ---
Documented by User: Aubrey Garcia DO 07/08/24 19:03 HPI - Abdominal Pain General: Chief Complaint: Abdominal Pain Stated Complaint: ABD Pain Time Seen by Provider: 07/08/24 04:36 History of Present Illness: Patient presents to the ER with complaints of abdominal pain. This is epigastric and left upper quadrant in nature. She said this has been going on for about the last 4 hours constantly she describes it as sharp and stabbing in nature, it has caused nausea and vomiting x 1. Patient's had this 1 other time but it went away on its own. Patient had a approximately 6 weeks ago but has had no complications from it. She denies any other abdominal surgeries. Patient says she did take 1 ibuprofen approximately 1 AM and it did not help. Related Data Previous Rx's ?Medication ?Instructions ?Recorded amoxicillin 875 mg-potassium 1 tab PO BID #14 tabs 07/08/24 clavulanate 125 mg tablet meloxicam 7.5 mg tablet 7.5 mg PO DAILY #7 tabs 07/08/24 oxycodone 5 mg tablet 5 mg PO Q8H PRN pain #14 tabs 07/08/24 Allergies Allergy/AdvReac Type Severity Reaction Status Date / Time house dust Allergy Intermediate wattery Verified 01/30/24 10:10 eyes lactose Allergy Intermediate diahrrea Verified 01/30/24 10:10 Review of Systems General: Reports: 10 or more systems reviewed and unremarkable except in HPI and below PFSH ED PFSH: Medical History Psychiatric care Asthma Diagnosed as a child and she used inhalers and nebulizers. Denies any hospitalizations or intubations for asthma. Uses her inhaler once or twice a month-worse during allergy season and when it is very hot. 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 She also does therapy there. Surgical History History of excision of pilonidal cyst Hx of section (~08/23/16) 08/23/2016 Primary low transverse delivery on 08/23/[address] Ontiveros at [facility] [place]. Patient was 32 weeks and presented to labor and delivery in labor and made cervical change from 5 cm to 8 cm in one hour. As baby was breech delivery was performed. Abnormal uterus was noted at time of . Right cavity of uterus appeared to be not present and only the left side of the uterine cavity was noted. Normal tubes and ovaries bilaterally. Baby girl weighing 3 lbs. 3 oz. was born and should to [place]. Baby's head was laterally compressed likely secondary to the cavity shape. Hx of tonsillectomy (~2009) And Adinoids Family History Grandmother Uterine cancer Paternal--dx age 30's Diabetes paternal Family/Other Uterine cancer Paternal Aunt---dx age 40's Family/Other Uterine cancer Paternal Cousin--dx age 20's Grandfather Stroke Paternal Diabetes paternal Father Hypertension Denies family history of Colon cancer Ovarian cancer Heart disease Hypercholesteremia Breast cancer Thyroid disease Social History Smoking and tobacco/nicotine status: unknown if used tobacco/nicotine Physical Exam Const: COMMON NORMALS: no acute distress, average body habitus, patient oriented x3, no limitations, healthy appearing, alert and well nourished HENMT: COMMON NORMALS: normocephalic, atraumatic, hearing grossly normal bilaterally, external ears normal, Normal external nose present, moist oral mucous membranes and oropharynx normal HEAD & SCALP: normocephalic and atraumatic NOSE: Normal external nose present EXTERNAL EAR: Yes external ears normal Neck/C-Spine: COMMON NORMALS: no JVD Chest: COMMONS NORMALS: normal inspection of the chest and normal palpation of entire chest wall Resp: COMMON NORMALS: normal respiratory effort, No retractions, No use of accessory muscles and clear to auscultation bilaterally AUSCULTATION: clear to auscultation bilaterally Cardio: COMMON NORMALS: no JVD, regular rate, regular rhythm, S1 normal heart sound present, S2 normal heart sound present, No gallops present (Cardio), No clicks present (Cardio), No murmurs present (Cardio) and No rub (Cardio) RATE: regular rate RHYTHM: regular rhythm HEART SOUNDS: S1 normal heart sound present and S2 normal heart sound present GI: COMMON NORMALS: Normal to inspection, nondistended, normoactive bowel sounds present, Soft to palpation, No hepatosplenomegaly present and no masses; negative for non-tender (Mild tenderness with palpation over epigastric and left upper quadrant area) PALPATION: Yes Soft to palpation and Yes No hepatosplenomegaly present Neuro: COMMON NORMALS: patient oriented x3 SENSORIUM/ORIENTATION: Yes alert Course Vital Signs: Vital signs: Vital Signs Temperature 97.7 F 07/08/24 16:35 Pulse Rate 88 07/08/24 16:35 Respiratory Rate 16 07/08/24 16:35 Blood Pressure 107/72 07/08/24 16:35 Pulse Oximetry 100 07/08/24 16:35 Oxygen Delivery Me thod Room Air 07/08/24 16:35 MDM - Abdominal Pain Medical Decision Making Patient care transitioned over to Dr. Cates at shift change, Medical Records I reviewed the patient's medical records. Lab Data I reviewed the patient's lab results. 07/08/24 04:40 07/08/24 04:40 Labs/Radiology: Radiology Impressions Abdomen/Pelvis CT 07/08/24 05:17 IMPRESSION: Acute cholecystitis is suspected. Ultrasound recommended. COMMENTS: Consistent with the [employer]'s Incidental Findings Committee white paper (J Am Luciana Radiol 2018): Any incidental renal lesion less than 1 cm or classified as too small to characterize, or any incidental cystic renal lesion characterized as simple-appearing, is likely benign. No follow-up imaging is recommended for these lesions per consensus recommendations based on imaging criteria. Gallbladder Ultrasound 07/08/24 08:48 IMPRESSION: 1. Slightly contracted gallbladder with cholelithiasis. Gallbladder wall thickening with mild edema. Findings consistent with acute cholecystitis. Findings correlate with CT report. 2. No hepatobiliary dilatation. Laboratory Results WBC 17.70 10^3/uL (3.29-11.43) H 07/08/24 04:40 RBC 4.80 10^6/uL (3.85-5.65) 07/08/24 04:40 Hgb 13.80 g/dL (11.27-16.99) 07/08/24 04:40 Hct 41.2 % (36-47) 07/08/24 04:40 MCV 85.8 fl (85-98) 07/08/24 04:40 MCH 28.8 pg (27-33) 07/08/24 04:40 MCHC 33.5 g/dL (30-55) 07/08/24 04:40 RDW 12.8 % (12.1-15.1) 07/08/24 04:40 Plt Count 324 10^3/cmm (157-399) 07/08/24 04:40 MPV 9.1 fL (7.4-10.4) 07/08/24 04:40 Neut % (Auto) 82.4 % 07/08/24 04:40 Lymph % (Auto) 9.2 % 07/08/24 04:40 [place] % (Auto) 7.1 % 07/08/24 04:40 Eos % (Auto) 0.7 % 07/08/24 04:40 Baso % (Auto) 0.3 % 07/08/24 04:40 Neut # (Auto) 14.59 10^3/uL (1.8-7.7) H 07/08/24 04:40 Lymph # (Auto) 1.6 10^3/uL (0.8-4.8) 07/08/24 04:40 [place] # (Auto) 1.3 10^3/uL (0.2-0.9) H 07/08/24 04:40 Eos # (Auto) 0.1 10^3/uL (0.0-0.8) 07/08/24 04:40 Baso # (Auto) 0.1 10^3/uL (0.0-0.1) 07/08/24 04:40 Nucleated RBC % (auto) 0 % 07/08/24 04:40 Nucleated RBCs # 0.0 /100WBC 07/08/24 04:40 Sodium 142 mmol/L (136-145) 07/08/24 04:40 Potassium 4.3 mmol/L (3.5-5.1) 07/08/24 04:40 Chloride 103 mmol/L (98-107) 07/08/24 04:40 Carbon Dioxide 25 mmol/L (22-29) 07/08/24 04:40 Anion Gap 18.3 (5-19) 07/08/24 04:40 BUN 9 mg/dL (6-20) 07/08/24 04:40 Creatinine 0.6 mg/dL (0.5-0.9) 07/08/24 04:40 GFR Calculation 119.9 mL/min (90-130) 07/08/24 04:40 Glucose 111 mg/dL (65-115) 07/08/24 04:40 Calculated Osmolality 293 mOsm/kg (285-295) 07/08/24 04:40 Lactic Acid 2.0 mmol/L (0.5-2.2) 07/08/24 04:40 Calcium 9.4 mg/dL (8.5-10.5) 07/08/24 04:40 Magnesium 2.0 mg/dL (1.7-2.3) 07/08/24 04:40 Total Bilirubin 0.5 mg/dL (0.15-1.2) 07/08/24 04:40 AST 133 U/L (0-32) H 07/08/24 04:40 ALT 49 U/L (0-33) H 07/08/24 04:40 Alkaline Phosphatase 129 U/L (35-105) H 07/08/24 04:40 Total Protein 6.9 g/dL (6.6-8.7) 07/08/24 04:40 Albumin 4.4 g/dL (3.5-5.2) 07/08/24 04:40 Globulin 2.5 g/dL (1.3-4.6) 07/08/24 04:40 Lipase 57 U/L (13-60) 07/08/24 04:40 Procalcitonin 0.03 ng/mL (0-0.5) 07/08/24 04:40 HCG, Qual Negative (Negative) 07/08/24 04:48 Urine Color Yellow (Yellow) 07/08/24 04:48 Urine Appearance Clear (CLEAR) 07/08/24 04:48 Urine pH 7.5 (5-7) 07/08/24 04:48 Ur Specific [place] 1.014 (1.005-1.030) 07/08/24 04:48 Urine Protein Negative (Negative) 07/08/24 04:48 Urine Glucose (UA) Negative (Normal) 07/08/24 04:48 Urine Ketones Negative (Negative) 07/08/24 04:48 Urine Blood Negative (Negative) 07/08/24 04:48 Urine Nitrate Negative (Negative) 07/08/24 04:48 Urine Bilirubin Negative (Negative) 07/08/24 04:48 Urine Urobilinogen 1.0 mg/dL (Negative) 07/08/24 04:48 Ur Leukocyte Esterase 1+ (Negative) A 07/08/24 04:48 Urine RBC None /hpf (0-2) 07/08/24 04:48 Urine WBC 5-10 /hpf (0-5) H 07/08/24 04:48 Ur Squamous Epith Cells 5-10 /hpf (0-5) H 07/08/24 04:48 Amorphous Sediment Not Reportable 07/08/24 04:48 Urine Bacteria 2+ /hpf (NONE) H 07/08/24 04:48 All radiology interpretation(s) finalized by discharge Discharge Plan Discharge Patient Disposition: Admitted As Inpatient Admit Provider: Eduardo Hart Clinical Impression: Acute cholecystitis Condition: Stable Discharge Diet: Low Fat Discharge Activity: Limit activity as instructed Sign Out Sign Out Data: Patient Sign Out occurred on 07/08/24 at 08:49. Patient's care was discussed, and care was transferred from Aubrey Garcia DO to Venkata Sierra DO. Coding Level of Care Code ED Industrial Hygenist for Chg Fwd Documented by User: Venkata Sierra DO 07/09/24 08:15 HPI - Abdominal Pain General: Chief Complaint: Abdominal Pain Stated Complaint: ABD Pain Time Seen by Provider: 07/08/24 04:36 Related Data Previous Rx's ?Medication ?Instructions ?Recorded amoxicillin 875 mg-potassium 1 tab PO BID #14 tabs 07/08/24 clavulanate 125 mg tablet meloxicam 7.5 mg tablet 7.5 mg PO DAILY #7 tabs 07/08/24 oxycodone 5 mg tablet 5 mg PO Q8H PRN pain #14 tabs 07/08/24 Allergies Allergy/AdvReac Type Severity Reaction Status Date / Time house dust Allergy Intermediate wattery Verified 01/30/24 10:10 eyes lactose Allergy Intermediate diahrrea Verified 01/30/24 10:10 PFSH ED PFSH: Medical History Psychiatric care Asthma Diagnosed as a child and she used inhalers and nebulizers. Denies any hospitalizations or intubations for asthma. Uses her inhaler once or twice a month-worse during allergy season and when it is very hot. 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 She also does therapy there. Surgical History History of excision of pilonidal cyst Hx of section (~08/23/16) 08/23/2016 Primary low transverse delivery on 08/23/[address] Ontiveros at [facility] [place]. Patient was 32 weeks and presented to labor and delivery in labor and made cervical change from 5 cm to 8 cm in one hour. As baby was breech delivery was performed. Abnormal uterus was noted at time of . Right cavity of uterus appeared to be not present and only the left side of the uterine cavity was noted. Normal tubes and ovaries bilaterally. Baby girl weighing 3 lbs. 3 oz. was born and should to [place]. Baby's head was laterally compressed likely secondary to the cavity shape. Hx of tonsillectomy (~2009) And Adinoids Family History Grandmother Uterine cancer Paternal--dx age 30's Diabetes paternal Family/Other Uterine cancer Paternal Aunt---dx age 40's Family/Other Uterine cancer Paternal Cousin--dx age 20's Grandfather Stroke Paternal Diabetes paternal Father Hypertension Denies family history of Colon cancer Ovarian cancer Heart disease Hypercholesteremia Breast cancer Thyroid disease Social History Smoking and tobacco/nicotine status: unknown if used tobacco/nicotine Course Vital Signs: Vital signs: Vital Signs Temperature 97.7 F 07/08/24 16:35 Pulse Rate 88 07/08/24 16:35 Respiratory Rate 16 07/08/24 16:35 Blood Pressure 107/72 07/08/24 16:35 Pulse Oximetry 100 07/08/24 16:35 Oxygen Delivery Me thod Room Air 07/08/24 16:35 MDM - Abdominal Pain Medical Decision Making Patient care transitioned over to Dr. Cates at shift change, Care assumed at change of shift labs and imaging reviewed labs consistent with a pattern of cholecystitis confirmed on CT and ultrasound no dilation of common bile duct discussed Dr. Hart will admit antibiotics given pain medications given. Discussed results with family orders written Lab Data 07/08/24 04:40 07/08/24 04:40 Labs/Radiology: Radiology Impressions Abdomen/Pelvis CT 07/08/24 05:17 IMPRESSION: Acute cholecystitis is suspected. Ultrasound recommended. COMMENTS: Consistent with the [employer]'s Incidental Findings Committee white paper (J Am Luciana Radiol 2018): Any incidental renal lesion less than 1 cm or classified as too small to characterize, or any incidental cystic renal lesion characterized as simple-appearing, is likely benign. No follow-up imaging is recommended for these lesions per consensus recommendations based on imaging criteria. Gallbladder Ultrasound 07/08/24 08:48 IMPRESSION: 1. Slightly contracted gallbladder with cholelithiasis. Gallbladder wall thickening with mild edema. Findings consistent with acute cholecystitis. Findings correlate with CT report. 2. No hepatobiliary dilatation. Laboratory Results WBC 17.70 10^3/uL (3.29-11.43) H 07/08/24 04:40 RBC 4.80 10^6/uL (3.85-5.65) 07/08/24 04:40 Hgb 13.80 g/dL (11.27-16.99) 07/08/24 04:40 Hct 41.2 % (36-47) 07/08/24 04:40 MCV 85.8 fl (85-98) 07/08/24 04:40 MCH 28.8 pg (27-33) 07/08/24 04:40 MCHC 33.5 g/dL (30-55) 07/08/24 04:40 RDW 12.8 % (12.1-15.1) 07/08/24 04:40 Plt Count 324 10^3/cmm (157-399) 07/08/24 04:40 MPV 9.1 fL (7.4-10.4) 07/08/24 04:40 Neut % (Auto) 82.4 % 07/08/24 04:40 Lymph % (Auto) 9.2 % 07/08/24 04:40 [place] % (Auto) 7.1 % 07/08/24 04:40 Eos % (Auto) 0.7 % 07/08/24 04:40 Baso % (Auto) 0.3 % 07/08/24 04:40 Neut # (Auto) 14.59 10^3/uL (1.8-7.7) H 07/08/24 04:40 Lymph # (Auto) 1.6 10^3/uL (0.8-4.8) 07/08/24 04:40 [place] # (Auto) 1.3 10^3/uL (0.2-0.9) H 07/08/24 04:40 Eos # (Auto) 0.1 10^3/uL (0.0-0.8) 07/08/24 04:40 Baso # (Auto) 0.1 10^3/uL (0.0-0.1) 07/08/24 04:40 Nucleated RBC % (auto) 0 % 07/08/24 04:40 Nucleated RBCs # 0.0 /100WBC 07/08/24 04:40 Sodium 142 mmol/L (136-145) 07/08/24 04:40 Potassium 4.3 mmol/L (3.5-5.1) 07/08/24 04:40 Chloride 103 mmol/L (98-107) 07/08/24 04:40 Carbon Dioxide 25 mmol/L (22-29) 07/08/24 04:40 Anion Gap 18.3 (5-19) 07/08/24 04:40 BUN 9 mg/dL (6-20) 07/08/24 04:40 Creatinine 0.6 mg/dL (0.5-0.9) 07/08/24 04:40 GFR Calculation 119.9 mL/min (90-130) 07/08/24 04:40 Glucose 111 mg/dL (65-115) 07/08/24 04:40 Calculated Osmolality 293 mOsm/kg (285-295) 07/08/24 04:40 Lactic Acid 2.0 mmol/L (0.5-2.2) 07/08/24 04:40 Calcium 9.4 mg/dL (8.5-10.5) 07/08/24 04:40 Magnesium 2.0 mg/dL (1.7-2.3) 07/08/24 04:40 Total Bilirubin 0.5 mg/dL (0.15-1.2) 07/08/24 04:40 AST 133 U/L (0-32) H 07/08/24 04:40 ALT 49 U/L (0-33) H 07/08/24 04:40 Alkaline Phosphatase 129 U/L (35-105) H 07/08/24 04:40 Total Protein 6.9 g/dL (6.6-8.7) 07/08/24 04:40 Albumin 4.4 g/dL (3.5-5.2) 07/08/24 04:40 Globulin 2.5 g/dL (1.3-4.6) 07/08/24 04:40 Lipase 57 U/L (13-60) 07/08/24 04:40 Procalcitonin 0.03 ng/mL (0-0.5) 07/08/24 04:40 HCG, Qual Negative (Negative) 07/08/24 04:48 Urine Color Yellow (Yellow) 07/08/24 04:48 Urine Appearance Clear (CLEAR) 07/08/24 04:48 Urine pH 7.5 (5-7) 07/08/24 04:48 Ur Specific [place] 1.014 (1.005-1.030) 07/08/24 04:48 Urine Protein Negative (Negative) 07/08/24 04:48 Urine Glucose (UA) Negative (Normal) 07/08/24 04:48 Urine Ketones Negative (Negative) 07/08/24 04:48 Urine Blood Negative (Negative) 07/08/24 04:48 Urine Nitrate Negative (Negative) 07/08/24 04:48 Urine Bilirubin Negative (Negative) 07/08/24 04:48 Urine Urobilinogen 1.0 mg/dL (Negative) 07/08/24 04:48 Ur Leukocyte Esterase 1+ (Negative) A 07/08/24 04:48 Urine RBC None /hpf (0-2) 07/08/24 04:48 Urine WBC 5-10 /hpf (0-5) H 07/08/24 04:48 Ur Squamous Epith Cells 5-10 /hpf (0-5) H 07/08/24 04:48 Amorphous Sediment Not Reportable 07/08/24 04:48 Urine Bacteria 2+ /hpf (NONE) H 07/08/24 04:48 Discharge Plan Discharge Patient Disposition: Admitted As Inpatient Admit Provider: Eduardo Hart Clinical Impression: Acute cholecystitis Condition: Stable Discharge Diet: Low Fat Discharge Activity: Limit activity as instructed Sign Out Sign Out Data: Patient Sign Out occurred on 07/08/24 at 08:49. Patient's care was discussed, and care was transferred from Aubrey Garcia DO to Venkata Sierra DO. Coding Level of Care Code ED Industrial Hygenist for Sergei Martinez
[2024-07-08 04:57] LABS: Basophils # 0.1 10^3/uL (0.0-0.1); Basophils % 0.3 %; Eosinophils # 0.1 10^3/uL (0.0-0.8); Eosinophils % 0.7 %; Hematocrit 41.2 % (36-47); Lymphocytes # 1.6 10^3/uL (0.8-4.8); Lymphocytes % 9.2 %; Mean Corpuscular HGB Conc 33.5 g/dL (30-55); Mean Corpuscular Hemoglobin 28.8 pg (27-33); Mean Corpuscular Volume 85.8 fl (85-98); Mean Platelet Volume 9.1 fL (7.4-10.4); Monocytes # 1.3 10^3/uL (0.2-0.9); Monocytes % 7.1 %; Neutrophils # 14.59 10^3/uL (1.8-7.7); Neutrophils % 82.4 %; Nucleated Red Blood Cells % 0 %; Platelet Count 324 10^3/cmm (157-399); Red Cell Distribution Width 12.8 % (12.1-15.1)
[2024-07-08 04:57] LABS: Bilirubin Urine Negative (Negative); Blood Urine Negative (Negative); Glucose Urine UA Negative (Normal); Ketones Urine Negative (Negative); Leukocyte Esterase Urine 1+ (Negative); Nitrate Urine Negative (Negative); Protein Urine Negative (Negative); Specific Gravity, Urine 1.014 (1.005-1.030); Urine Appearance Clear (CLEAR); Urine Color Yellow (Yellow); pH Urine 7.5 (5-7)
[2024-07-08] MEDS: ketorolac 30 mg/mL INJ IVP (05:06)
[2024-07-08] MEDS: ondansetron 2 mg/ML SDV 2 mL 4 MG IVP ×2 (05:07→14:41)
[2024-07-08 05:15] LABS: Alanine Aminotransferase 49 U/L (0-33); Albumin Level 4.4 g/dL (3.5-5.2); Alkaline Phosphatase 129 U/L (35-105); Anion Gap 18.3 (5-19); Aspartate Amino Transferase 133 U/L (0-32); Blood Urea Nitrogen 9 mg/dL (6-20); Calcium 9.4 mg/dL (8.5-10.5); Carbon Dioxide 25 mmol/L (22-29); Chloride 103 mmol/L (98-107); Creatinine Clr Calc Pharmacy 133.6411; Globulin 2.5 g/dL (1.3-4.6); Glomerular Filtration Rate 119.9 mL/min (90-130); Glucose 111 mg/dL (65-115); Lipase 57 U/L (13-60); Osmolality Calculated 293 mOsm/kg (285-295); Potassium 4.3 mmol/L (3.5-5.1); Sodium 142 mmol/L (136-145); Total Bilirubin 0.5 mg/dL (0.15-1.2); Total Protein 6.9 g/dL (6.6-8.7)
--- NOTE | 2024-07-08 05:17 | CTR_ITS ---
PROCEDURE INFORMATION: Exam: CT Abdomen And Pelvis With Contrast Exam date and time: 07/08/2024 5:40 AM Age: 28 years old Clinical indication: Abdominal pain; Epigastric; Additional info: Epigastric/left upper quadrant abdominal pain, leukocytosis TECHNIQUE: Imaging protocol: Computed tomography of the abdomen and pelvis with contrast. Radiation optimization: All CT scans at this facility use at least one of these dose optimization techniques: automated exposure control; mA and/or kV adjustment per patient size (includes targeted exams where dose is matched to clinical indication); or iterative reconstruction. Contrast material: OMNIPAQUE 350; Contrast volume: 100 ml; Contrast route: INTRAVENOUS (IV); COMPARISON: CT abdomen pelvis w con* [id number] 03/14/2022 7:22 AM RADIATION DOSE METRICS: Total DLP (mGy-cm): 631 FINDINGS: Liver: Normal. No mass. Gallbladder and biliary ducts: There may be thickening/edema of the wall of the gallbladder. No visible gallstones are seen. Ultrasound is recommended. Pancreas: Normal. No ductal dilation. Spleen: Normal. No splenomegaly. Adrenal glands: Normal. No mass. Kidneys and ureters: Left renal cyst. Stomach and bowel: Unremarkable. No obstruction. No mucosal thickening. Appendix: No evidence of appendicitis. Intraperitoneal space: Unremarkable. No free air. No significant fluid collection. Vasculature: Unremarkable. No abdominal aortic aneurysm. Lymph nodes: Unremarkable. No enlarged lymph nodes. Urinary bladder: Unremarkable as visualized. Reproductive: Unremarkable as visualized. Bones/joints: Unremarkable. No acute fracture. Soft tissues: Unremarkable. CT/CT abdomen pelvis w con* [id number] IMPRESSION: Acute cholecystitis is suspected. Ultrasound recommended. COMMENTS: Consistent with the [employer]'s Incidental Findings Committee white paper (J Am Luciana Radiol 2018): Any incidental renal lesion less than 1 cm or classified as too small to characterize, or any incidental cystic renal lesion characterized as simple-appearing, is likely benign. No follow-up imaging is recommended for these lesions per consensus recommendations based on imaging criteria.
[2024-07-08 05:19] LABS: Add Urine Microscopic? YES; Bacteria Urine 2+ /hpf
[2024-07-08 05:44] LABS: Procalcitonin 0.03 ng/mL (0-0.5)
[2024-07-08] MEDS: iohexol 350 mg/mL 500 mL Btl (per mL) IV (05:44)
--- NOTE | 2024-07-08 08:48 | US_ITS ---
WS: [id number] RIGHT UPPER QUADRANT ULTRASOUND HISTORY: acute cholecystitis COMPARISON: 01/06/2013, 07/08/2024 CT Liver: 15.8 cm in length. Normal size liver and echogenicity. No bile duct dilatation or mass. Portal Vein: Normal hepatopetal flow with monophasic waveform. Gallbladder: Slightly contracted gallbladder with numerous stones with shadowing. Gallbladder wall thickening with mild edema. Gallbladder wall measures up to 7 mm. Edema was also noted on the CT surrounding the gallbladder. CBD: 0.5 cm Pancreas: Tail is obscured by bowel gas. Head and body are normal. Right kidney: 10.8 cm in length. Normal size and echogenicity. No hydronephrosis or mass. Aorta and IVC: Unremarkable abdominal aorta and IVC. No ascites. US/US gall bladder [id number] IMPRESSION: 1. Slightly contracted gallbladder with cholelithiasis. Gallbladder wall thick ening with mild edema. Findings consistent with acute cholecystitis. Findings c orrelate with CT report. 2. No hepatobiliary dilatation.
[2024-07-08 10:21] LABS: HCG Qualitative Urine. Negative (Negative)
--- NOTE | 2024-07-08 10:33 | PC.NURSE ---
ANTIBIOTIC ADMINISTRATION DELAY DUE TO BLOOD CULTURES NEEDING TO BE OBTAINED PRIOR TO STARTING. THIS NURSE ATTEMPTED TO OBTAIN BLOOD CULTURES TWO TIMES WITH NO SUCCESS. LAB NOTIFIED AND STATED THEY WOULD TRY. ORDERED ANTIBIOTIC SENT WITH DENISE VEGA FROM SURGERY TO ADMINISTER AFTER BLOOD CULTURES ARE OBTAINED.
[2024-07-08] MEDS: piperacillin-tazobactam 3.375 GM in sodium chloride 0.9% (plus) 50 ML IV (10:50)
[2024-07-08] MEDS: sodium chloride 0.9% 1,000 ML 30 ML IV (11:29)
--- NOTE | 2024-07-08 11:54 | PM.HP ---
Providers/Chief Complaint Primary Care Provider: Leticia Lamas Chief Complaint: ABD Pain History of Present Illness Zenaida Abarca is a 28 year old female Who is here due to upper abdominal pain nausea and vomiting. She is 6 weeks . Workup in the emergency department showed elevated white count and a CT scan and ultrasound consistent with acute cholecystitis. I was consulted for this finding. According to the patient she had already 1 episode like this recently and there is a second episode in less than 2 weeks. Review of Systems General: Reports: 10 or more systems reviewed and unremarkable except in HPI and below Medications/Allergies Home Medications ?Medication ?Instructions ?Recorded ?Confirmed ?Last Taken ?Type No Known Home Medications 07/08/24 07/08/24 Unknown History Allergies Allergy/AdvReac Type Severity Reaction Status Date / Time house dust Allergy Intermediate wattery Verified 01/30/24 10:10 eyes lactose Allergy Intermediate diahrrea Verified 01/30/24 10:10 PFSH Acute PFSH: Medical History Psychiatric care Asthma Diagnosed as a child and she used inhalers and nebulizers. Denies any hospitalizations or intubations for asthma. Uses her inhaler once or twice a month-worse during allergy season and when it is very hot. 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 She also does therapy there. Surgical History History of excision of pilonidal cyst Hx of section (~08/23/16) 08/23/2016 Primary low transverse delivery on 08/23/[address] Ontiveros at [facility] [place]. Patient was 32 weeks and presented to labor and delivery in labor and made cervical change from 5 cm to 8 cm in one hour. As baby was breech delivery was performed. Abnormal uterus was noted at time of . Right cavity of uterus appeared to be not present and only the left side of the uterine cavity was noted. Normal tubes and ovaries bilaterally. Baby girl weighing 3 lbs. 3 oz. was born and should to [place]. Baby's head was laterally compressed likely secondary to the cavity shape. Hx of tonsillectomy (~2009) And Adinoids Family History Grandmother Uterine cancer Paternal--dx age 30's Diabetes paternal Family/Other Uterine cancer Paternal Aunt---dx age 40's Family/Other Uterine cancer Paternal Cousin--dx age 20's Grandfather Stroke Paternal Diabetes paternal Father Hypertension Denies family history of Colon cancer Ovarian cancer Heart disease Hypercholesteremia Breast cancer Thyroid disease Social History Smoking and tobacco/nicotine status: unknown if used tobacco/nicotine Vitals/I&O/Wt Last Vital Signs Temp 97.5 F L 07/08/24 11:18 Pulse 63 07/08/24 11:18 Resp 16 07/08/24 11:18 BP 117/67 07/08/24 11:18 Pulse Ox 98 07/08/24 11:18 O2 Del Method Room Air 07/08/24 11:18 07/07/24 07/08/24 07/08/24 22:59 06:59 14:59 Intake Total 0 / 0 Balance 0 / 0 Weight last 48 hrs Weight 158 lb Physical Exam Narrative: General : Patient is well developed , no acute distress, oriented x3 Head : Normal cephalic, a-traumatic. Nose : Mucous membranes are without erythema. Lungs : Equal chest rise bilaterally, no use of accessory muscles, trachea is midline. CV : Rate and rhythm are normal. Abdomen : epigastric and RUQ tenderness Extremities : No edema. Upper extremities are normal bilaterally. Back : non-tender to palpation, no CVA tenderness. Data 07/08/24 04:40 07/08/24 04:40 Micro: Microbiology 07/08/24 10:42 Blood Culture - Preliminary Blood SPECIMEN COLLECTED 07/08/24 10:42 Blood Culture - Preliminary Blood SPECIMEN COLLECTED A&P Assessment and plan (1) Acute cholecystitis: Plan After a complete history, physical examination and review of all available clinical data I have offered the patient laparoscopic cholecystectomy for acute cholecystitis. All the risk and benefits of the procedure were discussed with the patient including the risks of bleeding, infection, damage to surrounding structures including liver, duodenum, colon, risk of injuring bile ducts requiring extensive surgery at higher level of care facility, risk of retained stones, bile leak, bili Marilyn, need for subtotal cholecystectomy, hernia and wound related complications, need to conversion to open procedure. Patient agress and will like to proceed PDMP PDMP Reviewed: Not Reviewed Attestations Medical Necessity Statement*: Patient will require 24 hours of hospital stay for management of acute cholecystitis Coding Level of Care Code Acute Code for [facility] Diagnoses Acute cholecystitis K81.0
--- NOTE | 2024-07-08 12:15 | P.ANESASSM_ITS ---
Pre-Anesthetic Assessment Height/Weight: Height 1.57 m Weight 71.668 kg Temp Pulse Resp BP Pulse Ox O2 Del Method 97.5 F L 63 16 117/67 98 Room Air 07/08/24 11:18 07/08/24 11:18 07/08/24 11:18 07/08/24 11:18 07/08/24 11:18 07/08/24 11:18 Preop Diagnosis: Cholecystitis Operation Date: 07/08/24 12:00 Proposed Procedures p Laparoscopic Cholecystectomy(Not Applicable) - Eduardo Hart MD Familial anesthetic complications: none Was Beta Mehnaz taken within 24 hours: N/A Was Clonidine taken within 24 hours: N/A Last intake: Intake Last Liquid Date 07/08/24 Last Liquid Time 02:00 Last Solid Date 07/07/24 Last Solid Time 19:00 Social No alcohol and No tobacco Exam alert, oriented x 3, clear to auscultation bilaterally and regular rate & rhythm Airway Submandibular: within normal limits Cervical ROM: within normal limits Mallampati: Class II Comments: Comments: teeth intact History/ROS No significant history except as noted and No significant complaints Pulmonary None reported CV/HEM None reported None reported Hepatic None reported GI None reported Metabolic None reported Musc/skel None reported Neuropsych None reported Anesthetic Plan ASA status: 1 Other: 6 weeks post- Risk of > 500 ml blood loss (7ml/kg in children): No Medications/Allergies Home Medications ?Medication ?Instructions ?Recorded ?Confirmed ?Last Taken ?Type No Known Home Medications 07/08/24 0310/27 Unknown History Allergies Allergy/AdvReac Type Severity Reaction Status Date / Time house dust Allergy Intermediate wattery Verified 01/30/24 10:10 eyes lactose Allergy Intermediate diahrrea Verified 01/30/24 10:10 Current Medications Generic Name Dose Route Start Last Admin Trade Name Freq PRN Reason Stop Dose Admin Sodium Chloride 1,000 mls @ 30 mls/hr 07/08/24 11:15 07/08/24 11:29 Sodium Chloride 0.9% IV 07/09/24 11:14 30 mls/hr .Q24H BATSHEVA Administration PFSH Anesthesia Medical History Psychiatric care Asthma Diagnosed as a child and she used inhalers and nebulizers. Denies any hospitalizations or intubations for asthma. Uses her inhaler once or twice a month-worse during allergy season and when it is very hot. 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 She also does therapy there. Surgical History History of excision of pilonidal cyst Hx of section (~08/23/16) 08/23/2016 Primary low transverse delivery on 08/23/[address] Ontiveros at [facility] [place]. Patient was 32 weeks and presented to labor and delivery in labor and made cervical change from 5 cm to 8 cm in one hour. As baby was breech delivery was performed. Abnormal uterus was noted at time of . Right cavity of uterus appeared to be not present and only the left side of the uterine cavity was noted. Normal tubes and ovaries bilaterally. Baby girl weighing 3 lbs. 3 oz. was born and should to [place]. Baby's head was laterally compressed likely secondary to the cavity shape. Hx of tonsillectomy (~2009) And Adinoids Family History Grandmother Uterine cancer Paternal--dx age 30's Diabetes paternal Family/Other Uterine cancer Paternal Aunt---dx age 40's Family/Other Uterine cancer Paternal Cousin--dx age 20's Grandfather Stroke Paternal Diabetes paternal Father Hypertension Denies family history of Colon cancer Ovarian cancer Heart disease Hypercholesteremia Breast cancer Thyroid disease Social History Smoking and tobacco/nicotine status: unknown if used tobacco/nicotine Data Anesthesia 07/08/24 04:40 07/08/24 04:40 Short CBC 07/08/24 Range/Units 04:40 WBC 17.70 H (3.29-11.43) 10^3/uL Hgb 13.80 (11.27-16.99) g/dL Hct 41.2 (36-47) % MCV 85.8 (85-98) fl Plt Count 324 (157-399) 10^3/cmm Neut % (Auto) 82.4 % Neut # (Auto) 14.59 H (1.8-7.7) 10^3/uL BMP 07/08/24 04:40 Sodium 142 Potassium 4.3 Chloride 103 Carbon Dioxide 25 BUN 9 Creatinine 0.6 Glucose 111 Calcium 9.4 Liver Function 07/08/24 Range/Units 04:40 Total Bilirubin 0.5 (0.15-1.2) mg/dL AST 133 H (0-32) U/L ALT 49 H (0-33) U/L Alkaline Phosphatase 129 H (35-105) U/L Albumin 4.4 (3.5-5.2) g/dL Urine 07/08/24 Range/Units 04:48 Urine Color Yellow (Yellow) Urine Appearance Clear (CLEAR) Urine pH 7.5 (5-7) Ur Specific [place] 1.014 (1.005-1.030) Urine Protein Negative (Negative) Urine Glucose (UA) Negative (Normal) Urine Ketones Negative (Negative) Urine Nitrate Negative (Negative) Urine Bilirubin Negative (Negative) Ur Leukocyte Esterase 1+ A (Negative) Urine RBC None (0-2) /hpf Urine WBC 5-10 H (0-5) /hpf Microbiology 07/08/24 10:42 Blood Culture - Preliminary Blood SPECIMEN COLLECTED 07/08/24 10:42 Blood Culture - Preliminary Blood SPECIMEN COLLECTED Cardiac Studies: 2 No Data to Display
[2024-07-08] MEDS: lidocaine-epi 1% 20 mL INJ 10 ML INJECTION (13:02)
[2024-07-08] MEDS: BUPivacaine 0.25% INJ 10 mL INJECTION (13:02)
--- NOTE | 2024-07-08 13:53 | PM.OP ---
Operative Report Date of procedure: July 08, 2024 Pre-op diagnosis: Acute cholecystitis Post-op diagnosis: Acute cholecystitis Post-op findings: Inflamed gallbladder, otherwise normal biliary anatomy Procedure done: Laparoscopic cholecystectomy Specimens removed/disposition: Gallbladder Surgeon: Eduardo Hart MD Photolettering Machine Operator: [place] OR STaff Estimated blood loss: 5 Brief History: This is a 28-year-old female who is in the hospital for acute abdominal pain imaging laboratory workup is consistent with acute cholecystitis. After discussion we will resume benefits as documented my preop note we proceed to the OR for laparoscopic cholecystectomy. Procedure: Patient was brought into the OR, she was placed in a supine position. General anesthesia was given. The abdomen was prepped and draped in the usual sterile fashion. A timeout was conducted. I accessed the abdomen via a 5 mm Optiview port in the left upper quadrant. Initial pneumoperitoneum was obtained and no evidence of visceral injury during entry was noted. At 12 mm trocar was placed in the supraumbilical position under direct visualization. Additional 5 mm trocars were placed in the epigastrium right upper quadrant and right flank under direct visualization. The gallbladder was grasped from the fundus and retracted cephalad, I then grasped the infundibulum and retracted in the inferolateral direction exposing the hepatocystic triangle. there was inflamatory fluid in the right upper quadrant and edema of the pericholecystic tissue. The peritoneum anterior to the hepatocystic triangle was opened with electrocautery, I carried this opening in the medial and lateral direction to the edges of the liver and then on the sides of the gallbladder to allow for better exposure. the gallblader was partially intrahepatic. With careful blunt dissection as well as electrocautery I was able to encircle the cystic duct and artery, I also elevated lower third of the gallbladder from the liver bed, thus creating a critical view of safety. The cystic duct and artery were double clipped proximally and single clipped distally and transected. The gallbladder was removed from the liver bed using electrocautery. The gallbladder was retrieved in an Endo Catch bag via the umbilical trocar site. The liver bed and clips were inspected the area was hemostatic, there was no evidence of bile leak the clips appeared to be in good position. The liver bed was irrigated and suctioned. The medical trocar was removed and umbilical trocar site was closed with a 0 Vicryl Humble-Yazmin suture passer under direct visualization. The epigastrium right upper quadrant right flank trocars were removed under direct visualization, the left upper quadrant trocar was used to evacuate the pneumoperitoneum and subsequently removed. Local anesthesia was infiltrated. Hemostasis was achieved from the trocar sites. The wounds were closed in layers using #3-0 Vicryl for the subcutaneous tissue #4 Monocryl for the skin. At the end of the procedure all counts were correct, the patient tolerated well the procedure was transferred to the PACU in stable condition.
[2024-07-08] MEDS: fentaNYL 50 mcg/mL INJ 2mL IVP (15:04)
[2024-07-08] MEDS: oxyCODONE 5 mg IR Tab/Cap PO (15:29)
--- NOTE | 2024-07-08 16:35 | ANE.PACU2 ---
Inpatient post-anesthesia follow up: Airway intact: Yes Vital signs: Temperature 97.7 F Pulse Rate 88 Respiratory Rate 16 Blood Pressure 107/72 Pulse Oximetry 100 Oxygen Delivery Me thod Room Air Oxygen Flow Rate Fraction of Inspir ed Oxygen Hydration adequate: Yes Nausea and vomiting: No Pain level: 1 Mental status: Baseline
--- NOTE | 2024-07-08 16:57 | SUR.PHASEII ---
16:35 abdomen incisions dry and intact. no drainage.
--- NOTE | 2024-07-08 17:01 | P.DS_ITS ---
Discharge Providers Date of Admission: 07/08/24 11:57 Date of Discharge: July 09, 2024 Attending Provider at Admission: Eduardo Hart MD Attending Provider at Discharge: Eduardo Hart MD Primary Care Provider: Leticia Lamas Diagnoses at Discharge Discharge Diagnosis (1) Acute cholecystitis: Details from hospital stay: patient presented to the hospital with acute cholecystitis. a laparoscopic cholecystectomy was done without complications and patient did well in the post op period. will discharge home to continue management as outpatient. Status: Resolved Reason for Visit Reason for Visit: ABD Pain Physical Exam GI: OTHER: abdomen is soft, appropriately tender to palpation, surgical incisions covered with dermabond Discharge Data Studies Completed and Pending Completed Studies During Hospitalization Category Date Time Status CT abdomen pelvis w con* [id number] Stat Cat Scan 07/08/24 05:17 Completed US gall bladder [id number] Stat Ultrasound 07/08/24 08:48 Completed Pending at discharge Category Date Time Status Blood Culture Stat Lab 07/08/24 10:42 Results Pathology: Surgical [PTH] Routine Pth 07/08/24 13:46 Received Radiology Impressions Abdomen/Pelvis CT 07/08/24 05:17 IMPRESSION: Acute cholecystitis is suspected. Ultrasound recommended. COMMENTS: Consistent with the [employer]'s Incidental Findings Committee white paper (J Am Luciana Radiol 2018): Any incidental renal lesion less than 1 cm or classified as too small to characterize, or any incidental cystic renal lesion characterized as simple-appearing, is likely benign. No follow-up imaging is recommended for these lesions per consensus recommendations based on imaging criteria. Gallbladder Ultrasound 07/08/24 08:48 IMPRESSION: 1. Slightly contracted gallbladder with cholelithiasis. Gallbladder wall thickening with mild edema. Findings consistent with acute cholecystitis. Findings correlate with CT report. 2. No hepatobiliary dilatation. Laboratory Results WBC 17.70 10^3/uL (3.29-11.43) H 07/08/24 04:40 RBC 4.80 10^6/uL (3.85-5.65) 07/08/24 04:40 Hgb 13.80 g/dL (11.27-16.99) 07/08/24 04:40 Hct 41.2 % (36-47) 07/08/24 04:40 MCV 85.8 fl (85-98) 07/08/24 04:40 MCH 28.8 pg (27-33) 07/08/24 04:40 MCHC 33.5 g/dL (30-55) 07/08/24 04:40 RDW 12.8 % (12.1-15.1) 07/08/24 04:40 Plt Count 324 10^3/cmm (157-399) 07/08/24 04:40 MPV 9.1 fL (7.4-10.4) 07/08/24 04:40 Neut % (Auto) 82.4 % 07/08/24 04:40 Lymph % (Auto) 9.2 % 07/08/24 04:40 [place] % (Auto) 7.1 % 07/08/24 04:40 Eos % (Auto) 0.7 % 07/08/24 04:40 Baso % (Auto) 0.3 % 07/08/24 04:40 Neut # (Auto) 14.59 10^3/uL (1.8-7.7) H 07/08/24 04:40 Lymph # (Auto) 1.6 10^3/uL (0.8-4.8) 07/08/24 04:40 [place] # (Auto) 1.3 10^3/uL (0.2-0.9) H 07/08/24 04:40 Eos # (Auto) 0.1 10^3/uL (0.0-0.8) 07/08/24 04:40 Baso # (Auto) 0.1 10^3/uL (0.0-0.1) 07/08/24 04:40 Nucleated RBC % (auto) 0 % 07/08/24 04:40 Nucleated RBCs # 0.0 /100WBC 07/08/24 04:40 Sodium 142 mmol/L (136-145) 07/08/24 04:40 Potassium 4.3 mmol/L (3.5-5.1) 07/08/24 04:40 Chloride 103 mmol/L (98-107) 07/08/24 04:40 Carbon Dioxide 25 mmol/L (22-29) 07/08/24 04:40 Anion Gap 18.3 (5-19) 07/08/24 04:40 BUN 9 mg/dL (6-20) 07/08/24 04:40 Creatinine 0.6 mg/dL (0.5-0.9) 07/08/24 04:40 GFR Calculation 119.9 mL/min (90-130) 07/08/24 04:40 Glucose 111 mg/dL (65-115) 07/08/24 04:40 Calculated Osmolality 293 mOsm/kg (285-295) 07/08/24 04:40 Lactic Acid 2.0 mmol/L (0.5-2.2) 07/08/24 04:40 Calcium 9.4 mg/dL (8.5-10.5) 07/08/24 04:40 Magnesium 2.0 mg/dL (1.7-2.3) 07/08/24 04:40 Total Bilirubin 0.5 mg/dL (0.15-1.2) 07/08/24 04:40 AST 133 U/L (0-32) H 07/08/24 04:40 ALT 49 U/L (0-33) H 07/08/24 04:40 Alkaline Phosphatase 129 U/L (35-105) H 07/08/24 04:40 Total Protein 6.9 g/dL (6.6-8.7) 07/08/24 04:40 Albumin 4.4 g/dL (3.5-5.2) 07/08/24 04:40 Globulin 2.5 g/dL (1.3-4.6) 07/08/24 04:40 Lipase 57 U/L (13-60) 07/08/24 04:40 Procalcitonin 0.03 ng/mL (0-0.5) 07/08/24 04:40 HCG, Qual Negative (Negative) 07/08/24 04:48 Urine Color Yellow (Yellow) 07/08/24 04:48 Urine Appearance Clear (CLEAR) 07/08/24 04:48 Urine pH 7.5 (5-7) 07/08/24 04:48 Ur Specific [place] 1.014 (1.005-1.030) 07/08/24 04:48 Urine Protein Negative (Negative) 07/08/24 04:48 Urine Glucose (UA) Negative (Normal) 07/08/24 04:48 Urine Ketones Negative (Negative) 07/08/24 04:48 Urine Blood Negative (Negative) 07/08/24 04:48 Urine Nitrate Negative (Negative) 07/08/24 04:48 Urine Bilirubin Negative (Negative) 07/08/24 04:48 Urine Urobilinogen 1.0 mg/dL (Negative) 07/08/24 04:48 Ur Leukocyte Esterase 1+ (Negative) A 07/08/24 04:48 Urine RBC None /hpf (0-2) 07/08/24 04:48 Urine WBC 5-10 /hpf (0-5) H 07/08/24 04:48 Ur Squamous Epith Cells 5-10 /hpf (0-5) H 07/08/24 04:48 Amorphous Sediment Not Reportable 07/08/24 04:48 Urine Bacteria 2+ /hpf (NONE) H 07/08/24 04:48 Vitals Last Vital Signs Temp 97.7 F 07/08/24 16:35 Pulse 88 07/08/24 16:35 Resp 16 07/08/24 16:35 BP 107/72 07/08/24 16:35 Pulse Ox 100 07/08/24 16:35 O2 Del Method Room Air 07/08/24 16:35 Discharge Plan Discharge Patient Disposition: Home Condition: Stable Prescriptions: New meloxicam 7.5 mg tablet 7.5 mg PO DAILY Qty: 7 0RF amoxicillin-pot clavulanate 875-125 mg tablet 1 tab PO BID Qty: 14 0RF oxycodone 5 mg tablet 5 mg PO Q8H PRN (Reason: pain) Qty: 14 0RF Discharge Orders: Discharge Order (Routine); Ordered 07/08/24 Ordered By: Eduardo Hart Referrals: Eduardo Hart MD [Physician] - (FOLLOW UP WITH DOCTOR MARCELINA IN 2 WEEKS. CALL FOR AN APPOINTMENT TIME.) Discharge Diet: Low Fat Discharge Activity: Limit activity as instructed Patient Instructions: Acute Wound Care (DC), Post Anesthesia Care Activity Restrictions/Additional Instructions: Do not lift anything heavier than 10 pounds over the next 4 weeks to prevent hernia. Walk is much as possible this will speed up your recovery. Take your medication as instructed especially the antibiotic, the oxycodone is optional only if you are having increased pain, if you take oxycodone please take a stool softener. If you are taking oxycodone do not breast-feed, use formula. Return to the hospital you have fever chills abdominal pain that is getting worse over time or purulence coming from your wounds. Discharge Attestations Time Spent in Discharge Care*: less than 30 min Quality Metrics Clinical Quality Measures [ No reported AMI, CVA or VTE this stay] Coding Level of Care Code Acute Code for Chg Fwd Diagnoses Acute cholecystitis K81.0
== END 2024-07-08 16:35 | disposition home or self-care (01) ==
LOC: ER 09:26 → OR 10:49 → MEDSURG 14:44
PROVIDERS: Emergency Medicine; Admitting Provider Surgery; Emergency Provider Family Medicine; PCP Registered Nurse; Visit Provider Surgery
PROC: 0FT44ZZ Resection of Gallbladder, Percutaneous Endoscopic Approach (ICD-10-PCS; CPT 47562; principal; 2024-07-08 12:00)
DX: K80.10 Calculus of gallbladder with chronic cholecystitis without obstruction (principal); J45.909 Unspecified asthma, uncomplicated; F31.9 Bipolar disorder, unspecified; Z79.899 Other long term (current) drug therapy
CPT/HCPCS: 47562; 74177; 76705; 80053; 81001; 81025; 83605; 83690; 83735; 84145; 85025; 87040; 88304; 96365; 96375; 99285; A4216; G0378; J1100; J1171; J1885; J2250; J2405; J2543; J2704; J2710; J3010; J3490; J7030

== ENCOUNTER 2024-12-18 11:22 | Emergency (ER) | payer MEDICAID, SELFPAY ==
--- OUTSIDE RECORDS SUMMARY | 2024-12-18 11:27 | XMS_ITS | Encounter Summary ---
Author Organization [facility] Address [address] [place] [address] Care Team Providers Care Track Man Name Role Phone Carmelina Muro DO Primary Care Provider [phone] Encounter Details Date Type Department Care Team (Late Contact Info) Description 11/18/2024 Results Follow-Up [facility] [place] [address] [place] [address] August, PROJECT MANAGEMENT ANALYST [address] [place] [address] HCG QUANTITATIVE, BLOOD Social History Tobacco Use Types Packs/Day Years Used Date Smoking Tobacco: Former Cigarettes Q uit: 02/16/2022 Passive Smoke Exposure: Past Smokeless Tobacco: Never Comments:Quit smoking: Not e xposed to second hand smoke Alcohol Use Standard Drinks/Week Comments Not Currently 0 (1 standard drink = 0.6 oz pur e alcohol) occ Estimated Date of Delivery Comme nts Yes 07/05/2025 Based on last me nstrual period of 09/28/2024 Sex and Gender Information Value Date Recorded Sex Assigned at Female 05/21/2023 11:57 PM COMMUNITY RELATIONS OFFICER Legal Sex Female 8:57 AM COMMUNITY RELATIONS OFFICER Gender Identity Female 05/21/2023 11:57 PM COMMUNITY RELATIONS OFFICER Sexual Orientation Straight 05/21/2023 11 :57 PM COMMUNITY RELATIONS OFFICER documented as of this encounter Plan of Treatment Upcoming Encounters Date Type Department Care Team (Late st Contact Info) Description 12/28/2024 2:00 PM CDT visit [facility] [place] [address] [place] [address] Tasha Lagos, DANDRE [address] [place] [address] 01/07/2025 1:00 PM CDT Procedure visit [facility] [address] [place] [address] [place] [address] Kalee Ochoa AU.D [address] [place] [address] 01/07/2025 3:40 PM CDT Office Visit [facility] [address] [place] [address] [place] [address] Lb Milton, PROJECT MANAGEMENT ANALYST [address] [place] [address] 01/18/2025 7:30 AM CDT Ancillary Procedure [facility] [address] [address] Raegan Whyte MD [address] [place] [address] Unruly Aparicio II, MD [address] [place] [address] 01/18/2025 8:00 AM CDT Initial [facility] [address] [address] Raegan Whyte MD [address] [place] [address] Unruly Aparicio II, MD [address] [place], [place] [address] [address] [place] [address] [place] [address] 01/20/2025 11:45 AM CDT visit [facility] [place] [address] [place] [address] Raegan Whyte MD [address] [place] [address] 02/01/2025 1:45 PM CDT Ancillary Procedure [facility] [address] [place] [address] Raegan Whyte MD [address] [place] [address] Unruly Aparicio II, MD [address] [place] [address] [place] [address] 02/15/2025 9:30 AM CDT Ancillary Procedure [facility] [address] [address] Raegan Whyte MD [address] [place] [address] 02/15/2025 10:00 AM CDT visit [facility] [address] [place] [address] Raegan Whyte MD [address] [place] [address] Unruly Aparicio II, MD [address] [place] [address] [place] [address] 03/01/2025 12:45 PM CDT Ancillary Procedure [facility] [place] [address], [address] [place] [address] Raegan Whyte MD [address] [facility] [address] [place] [address] Unruly Aparicio II, MD [address] [place] [address] documented as of this encounter Visit Diagnoses Not on filedocumented in this encounter Care Teams Track Man Relationship Specialty Start Date End Date Carmelina Muro DO [address] [place] [phone] PCP - General 07/26/20 documented as of this encounter
--- OUTSIDE RECORDS SUMMARY | 2024-12-18 11:27 | XMS_ITS | Encounter Summary ---
Author Organization [facility] Address [address] [place] [address] Care Team Providers Care Fur Drummer Name Role Phone Carmelina Muro DO Primary Care Provider [phone] Encounter Details Date Type Department Care Team (Latest Contact Info) Description 05/10/2004 Outpatient Historical [facility] [address] [place] [address] Brad Flores MD [address] [place] [id number] DERMATITIS NOS (Primary Dx) Social History Tobacco Use Types Packs/Day Years Used Date Smoking Tobacco: Never Assessed Comments Unknown Sex and Gender Information Value Date Recorded Sex Assigned at Not on file Legal Sex Female 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 Gender Identity Not on file Sexual Orientation Not on file documented as of this encounter Plan of Treatment Not on file documented as of this encounter Visit Diagnoses Diagnosis Contact dermatitis and other eczema, due to unspecified cause- Primary documented in this encounter Additional Health Concerns Infection Onset Date Last Indicated Resolved Time R/O COVID-19 03/23/2020 03/23/2020 03/25/2020 6:01 AM COMBAT SYSTEMS OPERATOR documented as of this encounter Care Teams Fur Drummer Relationship Specialty Start Date End Date Carmelina Muro DO [address] [place] [address] PCP - General Family Practice 04/09/19 documented as of this encounter
--- OUTSIDE RECORDS SUMMARY | 2024-12-18 11:27 | XMS_ITS | Encounter Summary ---
Author Organization [facility] Address [address] [place] [address] Care Team Providers Care Junior Qa Analyst Name Role Phone Carmelina Muro DO Primary Care Provider [phone] Encounter Details Date Type Department Care Team (Latest Contact Info) Description 07/12/2004 Outpatient Historical [facility] [address] [place] [address] Brad Flores MD [address] [place] [address] CHRONIC SINUSITIS NOS (Primary Dx) Social History Tobacco Use Types Packs/Day Years Used Date Smoking Tobacco: Never Assessed Comments Unknown Sex and Gender Information Value Date Recorded Sex Assigned at Not on file 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 Gender Identity Not on file Sexual Orientation Not on file documented as of this encounter Plan of Treatment Not on file documented as of this encounter Visit Diagnoses Diagnosis Unspecified sinusitis (chronic)- Primary documented in this encounter Additional Health Concerns Infection Onset Date Last Indicated Resolved Time R/O COVID-19 03/23/2020 03/23/2020 03/25/2020 6:01 AM ADULT LITERACY INSTRUCTOR documented as of this encounter Care Teams Junior Qa Analyst Relationship Specialty Start Date End Date Carmelina Muro DO [address] [place] [address] PCP - General Family Practice 04/09/19 documented as of this encounter
--- OUTSIDE RECORDS SUMMARY | 2024-12-18 11:27 | XMS_ITS | Clinical Summary ---
Author Organization [facility] Address [address] [place] [address] Care Team Providers Care Correspondence Renew Clerk Name Role Phone Carmelina Muro Primary Care Provider [phone] Allergies No known active allergies Medications meclizine (ANTIVERT) 25 mg tabletIndication s:Meniere disease, right Take 1 Tablet (25 mg) by mouth 3 times daily as needed for Dizziness. 90 Tablet 3 10/06/2024 Active VIT [id number]-DS S ORAL Take by mouth. 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 10/16/2018 Right asymmetrical SNHL 10/16/2018 Meniere disease, right 10/16/2018 Asthma, mild intermittent, poorly controlled Nocturnal enuresis Estimated Date of Delivery Comme nts Yes 07/05/2025 Based on last me nstrual period of 09/28/2024 Resolved Problems Problem Noted Date Diagnosed Date Resolved Date 28 weeks gestation of 03/22/2024 07/13/2024 Encounter for repeat ultraso und of pyelectasis in haque , antepartum 02/03/2024 07/13/2024 Multigravida 11/05/2023 07/13/2024 Vertigo 10/16/2018 07/13/2024 Tinnitus, right 10/16/2018 07/13/2024 Encounters Date Type Department Care Team Description 12/07/2024 External Device Data ST[facility] ABSTRACTION Provider, Abstract 12/03/2024 [facility] [address] [place] [phone] Dakotah Shelley MD consultation/DLL 11/25/2024 10:30 AM CDT Initial [facility] JUANOlayinka Corea Carver [address] [place] [address] Raegan Whyte MD Encounter for screening (Primary Dx); History of labor; Supervision of high risk , antepartum; Hx of uterine surgery affecting current ; Encounter for screening for malformation; History of pre-term labor; Supervision of high risk in second trimester; History of delivery; Encounter for screening for cervical length 11/25/2024 Orders Only [facility] JUANOlayinka Corea Carver [address] [place] [address] Raegan Whyte MD 11/18/2024 Results Follow-Up [facility] [address] [place] [address] August, HCG QUANTITATIVE, BLOOD 11/17/2024 External Device Data STL ABSTRACTION Provider, Abstract 11/16/2024 3:20 PM CDT Office Visit [facility] [address] [place] [address] August, confirmed by positive blood test (Primary Dx) 11/16/2024 External Device Data STL ABSTRACTION Provider, Abstract 11/02/2024 External Device Data STL ABSTRACTION Provider, Abstract 10/29/2024 Results [facility] [address] [place] [facility] [address] Law Osorio, PAINTER SPRAY HCG QUANTITATIVE, BLOOD 10/27/2024 12:40 PM CDT Office Visit [facility] [address] [place] [address] Jo Law Leal, PAINTER SPRAY confirmed by positive urine test (Primary Dx) 10/26/[address] [facility] [address] [place] [facility] [place] [address] Carmelina Muro, DO Patient Communication 10/20/2024 External Device Data STL ABSTRACTION Provider, Abstract 10/20/[address] [facility] [address] [place] [address] Carmelina Muro, DO Question 10/19/2024 External Device Data STL ABSTRACTION Provider, Abstract 10/06/2024 2:00 PM CDT Office Visit 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 09/23/2024 External Device Data STL ABSTRACTION Provider, Abstract 09/23/2024 External Device Data STL ABSTRACTION Provider, Abstract 09/22/2024 External Device Data STL ABSTRACTION Provider, Abstract 09/21/2024 External Device Data STL ABSTRACTION Provider, Abstract from Last 3 Months Immunizations Immunization Administration Dates Next Due (M-M-R II/PRIORIX)(12 MO UP) MEASLES, MUMPS AND RUBELLA VIRUS VACCINE, 0.5 ML IM/SUBCUT 2000,12/21/1997 (SPIKEVAX) (12 YRS UP PRIMAR Y SERIES) COVID-19 VACCINE - MRNA-1273(PF) 100 MCG/0.5 ML IM SUSP 08/28/2021,03/28/2021 (VARIVAX)(12 MOS UP)VARICELL A VIRUS VACCINE (PF) 0.5 ML, SUB CUT 09/13/1997 Dt Dtp Dtap Vaccine 2000, 8,02/16/1997,1996,1996 HIB, Unspecified Formulation 12/21/1997, 02/16/1997,1996,1996 Hepatitis B Vaccine 02/16/1997,1996,1996 Hepatitis B Vaccine, Unspeci fied Formulation 02/16/1997,1996,1996 INFLUENZA VACCINE QUADRIVALE NT 3 YR UP PF IM 02/28/2020 IPV/OPV 2000, 8,1996,1996 Influenza Seasonal Unspecifi ed Formulation IM 02/28/1998 Influenza, Unspecified Formulation 02/28/1998 Tdap Vaccine > 7 Yo IM VFC 11/07/2010 Family History Medical History Relation Name Comments Healthy Daughter Colon Cancer Father Healthy Father No Known Problems Maternal Grandfather No Known Problems Maternal Grandmother Healthy Mother Diabetes Paternal Grandfather Diabetes Paternal Grandmother Healthy Sister Labor Sister Relation Name Status Comments Daughter Father Maternal Grandfather Maternal Grandmother Mother Alive Paternal Grandfather Paternal Grandmother Sister Alive Social History Tobacco Use Types Packs/Day Years Used Date Smoking Tobacco: Former Cigarettes Q uit: 02/16/2022 Passive Smoke Exposure: Past Smokeless Tobacco: Never Tobacco Cessation:Counseling Given: Not Answered Comments:Quit smoking: Not exposed to second hand smoke Alcohol Use Standard Drinks/Week Comments Not Currently 0 (1 standard drink = 0.6 oz pur e alcohol) occ Estimated Date of Delivery Comme nts Yes 07/05/2025 Based on last me nstrual period of 09/28/2024 Sex and Gender Information Value Date Recorded Sex Assigned at Female 05/21/2023 11:57 PM PLANTING MATERIAL CARRIER Legal Sex Female 8:57 AM PLANTING MATERIAL CARRIER Gender Identity Female 05/21/2023 11:57 PM PLANTING MATERIAL CARRIER Sexual Orientation Straight 05/21/2023 11 :57 PM PLANTING MATERIAL CARRIER Last Filed Vital Signs Vital Sign Reading Time Taken Comments Blood Pressure 124/72 11/25/2024 10:30 AM CDT Pulse 88 11/16/2024 3:10 PM CDT Temperature 36.6 C (97.8 F) 11/16/2024 3:10 PM CDT Respiratory Rate 18 11/16/2024 3:10 PM CDT Oxygen Saturation 99% 11/16/2024 3:10 PM CDT Inhaled Oxygen Concentration - - Weight 69.7 kg (153 lb 9.6 oz) 11/25/2024 10:30 AM CDT Height 160 cm (5' 3 ) 11/25/2024 10:30 AM CDT Body Mass Index 27.21 11/25/2024 10:30 AM CDT Plan of Treatment Upcoming Encounters Date Type Department Care Team (Late st Contact Info) Description 12/28/2024 2:00 PM CDT visit [facility] Anshul Corea Carver [address] [place] [address] Tasha Lagos NP [address] [place] [address] 01/07/2025 1:00 PM CDT Procedure visit [facility] Audiology [address] [place] [address] Kalee Ochoa, AUJosue [address] [place] [address] 01/07/2025 3:40 PM CDT Office Visit [facility] Thro[facility] [address] [place] [address] Lb Milton, WALTER [address] [place] [address] 01/18/2025 7:30 AM CDT Ancillary Procedure [facility] Maternal [facility] Medicine [place] [address], [address] [place] [address] Raegan Whyte MD [address] [place] [address] Unruly Aparicio II, MD [address] [facility] [address] [place] [address] 01/18/2025 8:00 AM CDT Initial [facility] [address], [address] [place] [address] Raegan Whyte MD [address] [place] [address] Unruly Aparicio II, MD [address] [place] [address] [address] [place] [address] 01/20/2025 11:45 AM CDT visit [facility] CASIEOlayinka Mills [address] [place] [address] Raegan Whyte MD [address] [place] [address] 02/01/2025 1:45 PM CDT Ancillary Procedure [facility] [address], [address] [place] [address] Raegan Whyte MD [address] [place] [address] Unruly Aparicio II, MD [address] [facility] [address] [place] [address] 02/15/2025 9:30 AM CDT Ancillary Procedure [facility] [address], [address] [place] [address] Raegan Whyte MD [address] [place] [address] 02/15/2025 10:00 AM CDT visit [facility] [address], [address] [place] [address] Raegan Whyte MD [address] [place] [address] Unruly Aparicio II, MD [address] [place] [address] [address] [place] [address] 03/01/2025 12:45 PM CDT Ancillary Procedure [facility] Maternal and [address], [address] [place] [address] Raegan Whyte MD [address] [place] [address] Unruly Aparicio II, MD [address] [place] [address] [address] [place] [address] Health Maintenance Due Date Last Done Comments HPV VACCINES (1 - 3-dose series) 08/02/2011 Preventative Visit-Managed Medicaid 08/02/2015 HPV/Cotest (21-29) 2017 DTAP/TDAP/TD VACCINES (7 - T d or Tdap) 11/07/2020 11/07/2010, 2000, 12/21/1997, Additional history exists COVID-19 Vaccine (3 - 2023-2 5 season) 2024 08/28/2021, 03/28/2021 INFLUENZA VACCINE (#1) 2024 , 02/28/2020, 02/28/1998 RSV VACCINE (60+ or ) (1 - Risk 1-dose series) 05/10/2025 CERVICAL CANCER SCREENING 11/04/2026 PAP SMEAR 11/04/2026 11/05/2023 HEPATITIS B VACCINES Completed 02/16/1997, 02/16/1997, 1996, Additional history exists CHLAMYDIA SCREENING (ANNUAL) 11-24 YEARS Discontinued 11/25/2024, 05/03/2022, 08/22/2020, Additional history exists Procedures Procedure Name Priority Date/Time Associated Diagnosis Comments OBSTETRIC PANEL Routine 11/25/2024 11:28 AM CDT Encounter for screening URINALYSIS W/REFLEX MICROSCOPIC Routine 11/25/2024 11:26 AM CDT Encounter for screening GENITAL CULTURE Routine 11/25/2024 11:26 AM CDT Encounter for screening GC/CHLAMYDIA, UROGENITAL Routine 025 11:26 AM CDT Encounter for screening URINE CULTURE, W/GBS SUSCEPTIBILITIES Routine 11/25/2024 11:26 AM CDT Encounter for screening US OB LTD 1 OR MORE FETUS + TV Routine 11/25/2024 11:20 AM CDT HCG QUANTITATIVE, BLOOD Routine 11/17/19 3:40 PM CDT confirmed by positive blood test HCG QUANTITATIVE, BLOOD Routine 10/28/19 25 1:16 PM CDT confirmed by positive urine test CERV/VAG CYTO AGE BASED SCREEN PAP W CT/NG Routine 11/05/2023 12:28 PM CDT from Last 3 Months or Most Recently Relevant to Health Maintenance Results * (ABNORMAL) OBSTETRIC PANEL WITH HIV (11/25/2024 11:28 AM CDT) WBC 12.4(H) 3.8 - 10.8 Thousand /uL [facility] RBC 4.57 3.80 - 5.10 Million/ uL [facility] HEMOGLOBIN 13.6 11.7 - 15.5 g/dL [facility] HEMATOCRIT 41.9 35.0 - 45.0 % [facility] MCV 91.7 80.0 - 100.0 fL [facility] MCH 29.8 27.0 - 33.0 pg [facility] MCHC 32.5 32.0 - 36.0 g/dL [facility] Comment: For adults, a slight decrease in the calculated MCHC value (in the range of 30 to 32 g/dL) is most likely not clinically significant; however, it should be interpreted with caution in correlation with other red cell parameters and the patient's clinical condition. RDW 13.5 11.0 - 15.0 % [facility] PLATELETS 367 140 - 400 Thousand /uL [facility] MPV 9.7 7.5 - 12.5 fL [facility] NEUTROPHIL ABSOLUTE 8,965(H) 1,500 - 7,800 cells/uL [facility] LYMPHOCYTE ABSOLUTE 2,517 850 - 3,900 cells/uL [facility] MONOCYTE ABSOLUTE 707 200 - 950 cells/uL [facility] EOSINOPHIL ABSOLUTE 174 15 - 500 cells/uL [facility] BASOPHILS ABSOLUTE 37 0 - 200 cells/uL [facility] NEUTROPHIL 72.3 % [facility] LYMPHOCYTES 20.3 % [facility] MONOCYTE 5.7 % [facility] EOSINOPHILS 1.4 % [facility] BASOPHILS 0.3 % [facility] ANTIBODY SCREEN NO ANTIBODIES DETECTED [facility] Comment: Reference range No antibodies detected This assay is a screening test for the detection of red blood cell antibodies. The test is not to be used for pretransfusion screening or for the medical management of an alloimmunized . ABO GROUP A [facility] RH (D) TYPE RH(D) POSITIVE [facility] Comment: For additional information, please refer to http://education.Leapforce/faq/QFD874 (This link is being provided for informational/ educational purposes only.) RPR NON-REACTIVE NON-REAC TIVE [facility] Comment: No laboratory evidence of syphilis. If recent exposure is suspected, submit a new sample in 2-4 weeks. HEPATITIS B SURFACE AG NON-REACTIVE NON-REAC TIVE [facility] Comment: For additional information, please refer to http://Cued.NextUser/faq/CVN032 (This link is being provided for informational/ educational purposes only.) RUBELLA IMMUNE STATUS <0.90(L) Index [facility] Comment: Index Interpretation ----- <0.90 Not consistent with immunity 0.90-0.99 Equivocal > or = 1.00 Consistent with immunity The presence of rubella IgG antibody suggests immunization or past or current infection with rubella virus. QUEST RESULT [facility] Comment: Quest component Name and Code: HIV FINAL INTERPRETATION [[id number]] HIV Negative HIV-1 antigen and HIV-1/HIV-2 antibodies were not detected. There is no laboratory evidence of HIV infection. HIV-1/2 AG AND AB SCREEN NON-REACTIVE NON-REAC TIVE [facility] HEPATITIS C AB NON-REACTIVE NON-REAC TIVE [facility] Comment: HCV antibody was non-reactive. There is no laboratory evidence of HCV infection. In most cases, no further action is required. However, if recent HCV exposure is suspected, a test for HCV RNA (test code 05688) is suggested. For additional information please refer to http://Cued.NextUser/faq/OQP13b1 (This link is being provided for informational/ educational purposes only.) FASTING:NO FASTING: NO Test Performed at: [facility] [address] [address] Annabel Lanier MD Blood 11/25/2024 11:2 8 AM CDT 11/25/2024 11:28 AM CDT Raegan Whyte MD CHEMISTRY ORDERABLES Deepika horner Result [facility] [phone] [address] [address] * URINE CULTURE, W/GBS SUSCEPTIBILITIES (11/25/2024 11:26 AM CDT) CULTURE, URINE, , W/GBS SUSCEPTIBILITIES SEE NOTE [facility] Comment: CULTURE, URINE, , W/GBS SUSCEPTIBILITIES Micro Number: [id number] Test Status: Final Specimen Source: Urine Specimen Quality: Adequate Result: Less than 10,000 CFU/mL of single Gram positive organism isolated. No further testing will be performed. If clinically indicated, recollection using a method to minimize contamination, with prompt transfer to Urine Culture Transport Tube, is recommended. Test Performed at: [facility] [address] [facility] [place] [address] Annabel Lanier MD Urine URINE SPECIMEN / Unknown 11/25/2024 11:26 AM CDT 11/25/2024 11:59 AM CDT Raegan Whyte MD MICROBIOLOGY - GENERAL OR DERABLES Final Result [facility] [phone] [facility] [place] [address] * GC/CHLAMYDIA, UROGENITAL (11/25/2024 11:26 AM CDT) Pathologist [facility] CHLAMYDIA TRACHOMATIS RNA, TMA, UROGENITAL NOT DETECTED NOT DETECTED [facility] NEISSERIA GONORRHOEAE RNA, TMA, UROGENITAL NOT DETECTED NOT DETECTED [facility] COMMENT INFECTIOUS DISEASE [facility] Comment: The analytical performance characteristics of this assay, when used to test SurePath(TM) specimens have been determined by [employer] [facility]. The modifications have not been cleared or approved by the FDA. This assay has been validated pursuant to the CLIA regulations and is used for clinical purposes. For additional information, please refer to https://education.NextUser/faq/PHR651 (This link is being provided for information/ educational purposes only.) Test Performed at: [facility] [address] [place] [address] Annabel Lanier MD Genital SPECIMEN FROM VAGINA / Unknown 11/25/2024 11:26 AM CDT 11/25/2024 12:00 PM CDT Raegan Whyte MD MICROBIOLOGY - GENERAL OR DERABLES Final Result Performing Organization Address [facility] Co de Phone Number [facility] [phone] [facility] [address] [place] [address] * GENITAL CULTURE (11/25/2024 11:26 AM CDT) GENITAL CULTURE SEE ANA [facility] Comment: CULTURE, GENITAL Micro Number: [id number] Test Status: Final Specimen Source: Cervix Specimen Quality: Adequate Result: Growth of normal urogenital jatin. Test Performed at: [facility] [address] Annabel Lanier MD Genital CERVIX UTERI STRUCTURE / Unknown 11/25/2024 11:26 AM CDT 11/25/2024 12:00 PM CDT Raegan Whyte MD MICROBIOLOGY - GENERAL OR DERABLES Final Result Performing Organization Address [facility] Co de Phone Number [facility] [phone] [facility] [address] [place] [address] * (ABNORMAL) URINALYSIS WITH REFLEX MICROSCOPIC (11/25/2024 11:26 AM CDT) COLOR UA YELLOW YELLOW [facility] CLARITY UA CLEAR CLEAR [facility] SPECIFIC GRAVITY UA 1.009 1.001 - 1.035 [facility] PH UA 5.5 5.0 - 8.0 [facility] GLUCOSE UA NEGATIVE NEGATIVE [facility] BILIRUBIN UA NEGATIVE NEGATIVE [facility] KETONES UA NEGATIVE NEGATIVE [facility] BLOOD UA NEGATIVE NEGATIVE [facility] PROTEIN UA NEGATIVE NEGATIVE [facility] NITRITE UA NEGATIVE NEGATIVE [facility] LEUKOCYTE ESTERASE UA TRACE(A) NEGATIVE [facility] WBC UA 0-5 < OR = 5 /HPF [facility] RBC UA NONE SEEN < OR = 2 /HPF [facility] EPITHELIAL CELLS, URINE 0-5 < OR = 5 /HPF [facility] BACTERIA UA FEW(A) NONE SEEN /HPF [facility] HYALINE CAST NONE SEEN NONE SEEN /LPF [facility] Comment: Test Performed at: [facility] [address] [place] [address] Ankush Joseph Urine URINE SPECIMEN OBTAINED BY CLEAN CATCH PROCEDURE / Unknown 11/25/2024 11:26 AM CDT 11/25/2024 11:59 AM CDT Raegan Whyte MD URINE ORDERABLES Final Re sult [facility] [phone] [facility] [address] [place] [address] * US OB LTD 1 OR MORE FETUS + TV (11/25/2024 11:20 AM CDT) Anatomical Region Laterality Modality Pelvis Ultrasound us Raegan Whyte MD US ORDERABLES Final Res ult * HCG QUANTITATIVE, BLOOD (11/16/2024 3:40 PM CDT) Only the most recent of2 resultswithin the time period is included. HCG QUANT, BLOOD 00937 mIU/mL [facility] Comment: Gestational Age Expected hCG values (mIU/mL) <1 Week: 5-50 1-2 Weeks: 50-500 2-3 Weeks: 100-5000 3-4 Weeks: 500-56451 4-5 Weeks: 1000-26685 5-6 Weeks: [address]64[address] 6-8 Weeks: [address] 2-3 Months: [address] The table above provides only a very rough estimate of gestational age and should be used only in conjunction with other methods for establishing gestational age. Much more reliable and accurate estimations of gestational age may be obtained by using LMP or ultrasound. Values from different assay methods may vary. The use of this assay to monitor or to diagnose patients with cancer or any condition unrelated to has not been cleared or approved by the FDA or the cooling machine operator of the assay. FASTING:UNKNOWN FASTING: UNKNOWN Test Performed at: [facility] [address] [place] [address] Annabel Lanier MD Blood 11/16/2024 3:40 PM CDT 11/16/2024 3:41 PM CDT August [facility] CHEMISTRY ORDERABLES Final Resul t [facility] [phone] [facility] [address] [address] [facility] [place] [address] * CERV/VAG CYTO AGE BASED SCREEN PAP W CT/NG (11/05/2023 12:28 PM CDT) COMMENT (PAP): [employer] Comment: This order for age-based cervical cancer and STI screening follows ACOG guidelines(PB 168, 140, KZT998). See individual assays for performing site location. CLINICAL INFORMATION [employer] Comment:None given LAST MENSTRUAL PERIOD [employer] Comment:[id number] PREV PAP: Robert [facility] Comment:NONE GIVEN PREV BX: Robert Applebaum [facility] Comment:NONE GIVEN SOURCE Robert Applebaum [facility] Comment:Endocervix ADEQUACY: Robert Applebaum [facility] Comment: Satisfactory for evaluation. Endocervical/transformation zone component present. PAP INTERP [employer] Comment: Cytology Results: Negative for intraepithelial lesion or malignancy. CYTOLOGY INFECTION [facility] [employer] Comment: Fungal organisms morphologically consistent with Gita spp. COMMENT (PAP TEST) [facility] Comment: This Pap test has been evaluated with computer assisted technology. HEAD INSPECTOR AND CENTER MARKER: Jaime wei [facility] Comment: JXD, CT(ASCP) CT Screening Location: [address] [address] EXPLANATORY NOTE [facility] Comment: EXPLANATORY NOTE: The Pap is a screening test for cervical cancer. It is not a diagnostic test and is subject to false negative and false positive results. It is most reliable when a satisfactory sample, regularly obtained, is submitted with relevant clinical findings and history, and when the Pap result is evaluated along with historic and current clinical information. C TRAC RNA NOT DETECTED NOT DETECTED [facility] N.GONORRHOEAE RNA, TMA NOT DETECTED NOT DETECTED [facility] COMMENT INFECTIOUS DISEASE [facility] Comment: The analytical performance characteristics of this assay, when used to test SurePath(TM) specimens have been determined by [employer]. The modifications have not been cleared or approved by the FDA. This assay has been validated pursuant to the CLIA regulations and is used for clinical purposes. For additional information, please refer to https://education.NextUser/faq/GLH957 (This link is being provided for information/ educational purposes only.) FASTING: UNKNOWN Test Performed at: [address] [address] Yanick Neri [place] 11/05/2023 12:2 8 PM CDT 11/08/2023 1:43 AM CDT Raegan Whyte MD PATHOLOGY/CYTOLOGY ORDERA DANTE Final Result [facility] [phone] [address] from Last 3 Months or Most Recently Relevant to Health Maintenance Insurance [employer] RX INFOCROSSING Medicaid Advance Directives For more information, please contact: [phone] * Full Code (Latest Code Status on File) Date Activated Date Inactivated Comments 05/25/2024 3:53 PM 05/27/2024 5:05 PM * Full Code Date Activated Date Inactivated Comments 05/25/2024 3:53 PM 05/25/2024 3:53 PM * Full Code Date Activated Date Inactivated Comments 05/25/2024 11:13 AM 05/25/2024 3:53 PM * Full Code Date Activated Date Inactivated Comments 03/21/2024 7:45 PM 03/22/2024 12:58 AM * Full Code Date Activated Date Inactivated Comments 02/19/2024 10:18 AM 02/19/2024 7:39 PM Care Teams Correspondence Renew Clerk Relationship Specialty Start Date End Date Carmelina Muro DO [address] [facility] [place] [address] PCP - General 07/26/20
--- OUTSIDE RECORDS SUMMARY | 2024-12-18 11:27 | XMS_ITS | Encounter Summary ---
Author Organization [facility] Address [address] [place] [address] Care Team Providers Care Pit Steward Name Role Phone JinaCarmelina benton Delbert MILLS Primary Care Provider Encounter Details Date Type Department Care Team (Latest Contact Info) Description 09/21/2004 Outpatient Historical [facility] [address] [place] [address] Brad Flores MD [address] [place] [phone] NONINFEC GASTROENTERIT NEC (Primary Dx) Social History Tobacco Use Types Packs/Day Years Used Date Smoking Tobacco: Never Assessed Comments Unknown Sex and Gender Information Value Date Recorded Sex Assigned at Not on file Legal Sex Female 4:55 AM PROCESS CONTROL SUPERVISOR Gender Identity Not on file Sexual Orientation Not on file documented as of this encounter Plan of Treatment Not on file documented as of this encounter Visit Diagnoses Diagnosis Other and unspecified noninfectious gastroenteritis and colitis(558.9)- Primary Other and unspecified noninfectious gastroenteritis and colitis documented in this encounter Additional Health Concerns Infection Onset Date Last Indicated Resolved Time R/O COVID-19 03/23/2020 03/23/2020 03/25/2020 6:01 AM PROCESS CONTROL SUPERVISOR documented as of this encounter Care Teams Pit Steward Relationship Specialty Start Date End Date Carmelina Muro DO [address] [place] [address] PCP - General Family Practice 04/09/19 documented as of this encounter
--- OUTSIDE RECORDS SUMMARY | 2024-12-18 11:27 | XMS_ITS | Encounter Summary ---
Author Organization [facility] Address [address] [place] [address] Care Team Providers Care Environmental Technology Professor Name Role Phone Carmelina Muro DO Primary Care Provider Encounter Details Date Type Department Care Team (Latest Contact Info) Description 06/13/2004 Outpatient Historical [facility] [address] [place] [address] Brad Flores MD [address] [place] [phone] BRONCHITIS NOS (Primary Dx) Social History Tobacco Use Types Packs/Day Years Used Date Smoking Tobacco: Never Assessed Comments Unknown Sex and Gender Information Value Date Recorded Sex Assigned at Not on file Legal Sex Female 4:55 AM COMPUTER TRAINER Gender Identity Not on file Sexual Orientation Not on file documented as of this encounter Plan of Treatment Not on file documented as of this encounter Visit Diagnoses Diagnosis Bronchitis, not specified as acute or chronic- Primary documented in this encounter Additional Health Concerns Infection Onset Date Last Indicated Resolved Time R/O COVID-19 03/23/2020 03/23/2020 03/25/2020 6:01 AM COMPUTER TRAINER documented as of this encounter Care Teams Environmental Technology Professor Relationship Specialty Start Date End Date Carmelina Muro DO [address] [place] [address] PCP - General Family Practice 04/09/19 documented as of this encounter
--- OUTSIDE RECORDS SUMMARY | 2024-12-18 11:27 | XMS_ITS | Encounter Summary ---
Author Organization [facility] Address [address] [place] [address] Care Team Providers Care Flyer Builder Name Role Phone Carmelina Muro DO Primary Care Provider [phone]- [phone] Encounter Details Date Type Department Care Team (Late Contact Info) Description 10/29/2024 Results Follow-Up [facility] Family Medicine [place] [address] [place] [address] Law [facility] [address] [place] [address] HCG QUANTITATIVE, BLOOD Social History Tobacco Use Types Packs/Day Years Used Date Smoking Tobacco: Former Cigarettes Q uit: 02/16/2022 Passive Smoke Exposure: Past Smokeless Tobacco: Never Comments:Quit smoking: Not e xposed to second hand smoke Alcohol Use Standard Drinks/Week Comments Not Currently 0 (1 standard drink = 0.6 oz pur e alcohol) occ Comments No Sex and Gender Information Value Date Recorded Sex Assigned at Female 05/21/2023 11:57 PM BOOM STORAGE Legal Sex Female 8:57 AM BOOM STORAGE Gender Identity Female 05/21/2023 11:57 PM BOOM STORAGE Sexual Orientation Straight 05/21/2023 11 :57 PM BOOM STORAGE documented as of this encounter Plan of Treatment Upcoming Encounters Date Type Department Care Team (Late st Contact Info) Description 12/28/2024 2:00 PM CDT visit [facility] Anshul Corea Martin [address] [place] [address] Tasha Lagos NP [address] [place] [address] 01/07/2025 1:00 PM CDT Procedure visit [facility] Audiology [address] [address] [place] [phone] Kalee Ochoa AU.D [address] [place] [address] 01/07/2025 3:40 PM CDT Office Visit [facility] Ear, Nose and Throat [address] [place] [address] Lb Milton, HEAD GOLF PROFESSIONAL [address] [place] [address] 01/18/2025 7:30 AM CDT Ancillary Procedure [facility] [address], [address] [place] [address] Raegan Whyte MD [address] [place] [address] Unruly Aparicio II, MD [address] [facility] [address] [place] [address] 01/18/2025 8:00 AM CDT Initial [facility] [address], [address] [place] [address] Raegan Whyte MD [address] [place] [address] Unruly Aparicio II, MD [address] [facility] [address] [place] [address] 01/20/2025 11:45 AM CDT visit [facility] Anshul Mills [address] [place] [address] Raegan Whyte MD [address] [place] [address] 02/01/2025 1:45 PM CDT Ancillary Procedure [facility] [place] [address], [address] [place] [address] Raegan Whyte MD [address] [place] [address] Unruly Aparicio II, MD [address] [facility] [address] [place] [address] 02/15/2025 9:30 AM CDT Ancillary Procedure [facility] [address], [address] [place] [address] Raegan Whyte MD [address] [place] [address] 02/15/2025 10:00 AM CDT visit [facility] [address], [address] [place] [address] Raegan Whyte MD [address] [place] [address] Unruly Aparicio II, MD [address] [facility] [address] [place] [address] 03/01/2025 12:45 PM CDT Ancillary Procedure [facility] [place] [address], [address] [place] [address] Raegan Whyte MD [address] [facility] [address] [place] [address] Unruly Aparicio II, MD [address] [place] [address] documented as of this encounter Visit Diagnoses Not on filedocumented in this encounter Care Teams Flyer Builder Relationship Specialty Start Date End Date Carmelina Muro DO [address] [place] [phone] PCP - General 07/26/20 documented as of this encounter
--- OUTSIDE RECORDS SUMMARY | 2024-12-18 11:27 | XMS_ITS | Encounter Summary ---
Author Organization [facility] Address [address] [place] [address] Care Team Providers Care Chairman President And Chief Executive Officer Name Role Phone Carmelina Muro DO Primary Care Provider [phone]- [phone] Encounter Details Date Type Department Care Team (Late st Contact Info) Description 12/06/2023 Telephone [facility] [address] [place] [address] Catalina Elizalde MD [address] [facility] [address] [address] Social History Tobacco Use Types Packs/Day Years Used Date Smoking Tobacco: Former Cigarettes Q uit: 02/16/2022 Smokeless Tobacco: Former Comments:Quit smoking: Not e xposed to second hand smoke Alcohol Use Standard Drinks/Week Comments Not Currently 0 (1 standard drink = 0.6 oz pur e alcohol) occ Comments Yes Sex and Gender Information Value Date Recorded Sex Assigned at Female 05/21/2023 11:57 PM FRONT FACER Legal Sex Female 8:57 AM FRONT FACER Gender Identity Female 05/21/2023 11:57 PM FRONT FACER Sexual Orientation Straight 05/21/2023 11 :57 PM FRONT FACER documented as of this encounter Miscellaneous Notes * Telephone Encounter - Catalina Elizalde MD - 12/06/2023 9:24 PM CDT Images from the original note were not included. Please let the patient know that her home sleep study was denied. Advised an in lab sleep study. Order was placed. documented in this encounter Plan of Treatment Upcoming Encounters Date Type Department Care Team (Late st Contact Info) Description 12/28/2024 2:00 PM CDT visit [facility] Anshul Mills [address] [place] [address] Tasha Lagos NP [address] [place] [address] 01/07/2025 1:00 PM CDT Procedure visit [facility] Audiology [address] [place] [address] Kalee Ochoa AU.D [address] [place] [address] 01/07/2025 3:40 PM CDT Office Visit [facility] Ear, Nose and Throat [address] [place] [address] [place] [address] Lb Milton, [facility] [address] [place] [address] 01/18/2025 7:30 AM CDT Ancillary Procedure [facility] [place] [facility] [address], [address] [place] [address] Raegan Whyte MD [address] [place] [address] Unruly Aparicio II, MD [address] [place] [address] 01/18/2025 8:00 AM CDT Initial [facility] [place] [facility] [place] [address], [address] [place] [address] Raegan Whyte MD [address] [place] [address] Unruly Aparicio II, MD [address] [place] [address] [address] [place] [address] 01/20/2025 11:45 AM CDT visit [facility] Anshul Mills [address] [place] [address] Raegan Whyte MD [address] [place] [address] 02/01/2025 1:45 PM CDT Ancillary Procedure [facility] [place] [facility] [address] [place] [address] Raegan Whyte MD [address] [place] [address] Unruly Aparicio II, MD [address] [place] [address] [place] [address] 02/15/2025 9:30 AM CDT Ancillary Procedure [facility] [place] [facility] [address] [place] [address] Raegan Whyte MD [address] [place] [address] 02/15/2025 10:00 AM CDT visit [facility] [place] [facility] [address] [place] [address] Raegan Whyte MD [address] [place] [address] Unruly Aparicio II, MD [address] [place] [address] 03/01/2025 12:45 PM CDT Ancillary Procedure [facility] [place] [facility] [place] [address], [address] [place] [address] Raegan Whyte MD [address] [facility] [address] [place] [address] Unruly Aparicio II, MD [address] [place] [address] documented as of this encounter Visit Diagnoses Diagnosis Sleep apnea, unspecified type- Primary documented in this encounter Care Teams Chairman President And Chief Executive Officer Relationship Specialty Start Date End Date Carmelina Muro DO [address] [place] [address] PCP - General 07/26/20 documented as of this encounter
--- OUTSIDE RECORDS SUMMARY | 2024-12-18 11:27 | XMS_ITS | Clinical Summary ---
Author Organization [facility] Address [address] [place] [address] Care Team Providers Care Hvac Service Tech Name Role Phone Carmelina Muro DO Primary Care Provider [phone] Allergies No known active allergies Medications traZODone (DESYREL) 50 mg tablet TKAE 1/2 TO 1 TABLET BY MOUTH EVERY NIGHT AT BEDTIME NEEDED FOR SLEEP 03/03/2020 Active lamoTRIgine (LaMICtal) 100 mg tablet Take 100 mg by mouth daily. 03/03/2020 Active triamcinolone acetonide (KENALOG) 0.5 % CreamIndication s:Bedbug bite, initial encounter Apply to affected area 2 times daily. 45 Gram 05/01/2020 Active LORazepam (ATIVAN) 0.5 mg tabletIndicatio ns:Vertigo,Meni ere disease, right Place 1 Tablet (0.5 mg) under tongue every 6 hours as needed for Anxiety. 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 10/16/2018 Right asymmetrical SNHL 10/16/2018 Meniere disease, right 10/16/2018 Tinnitus, right 10/16/2018 Asthma, mild intermittent, poorly controlled Nocturnal enuresis Immunizations Immunization Administration Dates Next Due (M-M-R II/PRIORIX)(12 MO UP) MEASLES, MUMPS AND RUBELLA VIRUS VACCINE, 0.5 ML IM/SUBCUT 2000,12/21/1997 (VARIVAX)(12 MOS UP)VARICELL A VIRUS VACCINE (PF) 0.5 ML, SUB CUT 09/13/1997 Dt Dtp Dtap Vaccine 2000, 8,02/16/1997,1996,1996 HIB, Unspecified Formulation 12/21/1997, 02/16/1997,1996,1996 Hepatitis B Vaccine 02/16/1997,1996,1996 INFLUENZA VACCINE QUADRIVALE NT 3 YR UP PF IM 02/28/2020 IPV/OPV 2000, 8,1996,1996 Influenza Seasonal Unspecifi ed Formulation IM 02/28/1998 Tdap Vaccine > 7 Yo IM VFC 11/07/2010 Family History Medical History Relation Name Comments Healthy Father Healthy Mother Relation Name Status Comments Father Mother Alive Sister Alive Social History Tobacco Use Types Packs/Day Years Used Date Smoking Tobacco: Never Smokeless Tobacco: Current Tobacco Cessation:Ready to Q uit: No; Counseling Given: Yes Comments:Not exposed to second hand smoke Alcohol Use Standard Drinks/Week Comments No 0 (1 standard drink = 0.6 oz pur e alcohol) Comments No Sex and Gender Information Value Date Recorded Sex Assigned at Not on file Legal Sex Female 4:55 AM MEDICAL SCREENER Gender Identity Not on file Sexual Orientation Not on file Occupation Industry Job Start Date Job End Date Student Not on file Not on file Not on file Not on file Not on file Not on file Not on file Last Filed Vital Signs Vital Sign Reading Time Taken Comments Blood Pressure 118/76 07/26/2020 4:11 PM CDT Pulse 118 07/26/2020 4:11 PM CDT Temperature 37.3 C (99.2 F) 07/26/2020 4:11 PM CDT Respiratory Rate 16 12/13/2019 2:25 PM CDT Oxygen Saturation 99% 07/26/2020 4:11 PM CDT Inhaled Oxygen Concentration - - Weight 63.3 kg (139 lb 9.6 oz) 07/26/2020 4:11 P M CDT Height 157.5 cm (5' 2 ) 07/26/2020 4:11 PM CDT Body Mass Index 25.53 07/26/2020 4:11 PM CDT Plan of Treatment Health Maintenance Due Date Last Done Comments HPV VACCINES (1 - 3-dose series) 08/02/2011 Preventative Visit-Managed Medicaid 08/02/2015 CERVICAL CANCER SCREENING 2017 PAP SMEAR 2017 01/08/2013 HPV/Cotest (21-29) 01/08/2018 01/08/2013 DTAP/TDAP/TD VACCINES (7 - T d or Tdap) 11/07/2020 11/07/2010, 2000, 12/21/1997, Additional history exists INFLUENZA VACCINE (#1) 2024 02/28/2020, 1997 HPV/Cotest (30-65) 2026 01/08/2013 HEPATITIS B VACCINES Completed 02/16/1997, 1996, 1996 CHLAMYDIA SCREENING (ANNUAL) 11-24 YEARS Discontinued 08/22/2020, 07/26/2020, 01/08/2013 Procedures Procedure Name Priority Date/Time Associated Diagnosis Comments GC/CHLAMYDIA, URINE Routine 08/22/2020 3 :16 PM CDT Exposure to chlamydia CERV/VAG CYTOPATH, THIN PREP W/RFLX HPV Routine 01/08/2013 1:24 PM CDT from Last 3 Months or Most Recently Relevant to Health Maintenance Results * GC/CHLAMYDIA, URINE (08/22/2020 3:16 PM CDT) CHLAMYDIA DNA AMPLIFICATION NOT DETECTED Not Detected 08/23/2020 1:55 AM CDT [facility] GC DNA AMPLIFICATION NOT DETECTED Not Detected 08/23/2020 1:55 AM CDT [facility] Urine URINE SPECIMEN / Unknown Collection / Unknown 08/22/2020 3:16 PM CDT 08/22/2020 8:22 PM CDT Narrative [facility] - 08/23/2020 1:55 AM CDT Results should not be used for the evaluation of suspected sexual abuse or for other medico-legal indications. The only legally accepted results are from culture. Results cannot be used to assess therapeutic success or failure since nucleic acids may persist following antimicrobial therapy. us Luci Roque CHILI POWDER MIXER URINE ORDERABLES [place] [address] * CERV/VAG CYTOPATH, THIN PREP W/RFLX HPV (01/08/2013 1:24 PM CDT) Pathologist [facility] THIN PREP CYTOLOGY REPORT REFLEX HPV [facility] Anatomic Pathology Dept [address] [place] [address] Patient: GOMEZ COSTA Accn No: [id number] , [id number] Collected: 01/08/2013 1:24:00 PM All cases except those with a DP prefix are performed by pathologists from [facility] at [facility]. Case type DP is performed by Dr. Gian Parada, [facility], [facility], [address], [address], [place] [address] (CLIA #[id number]) (Ph. [phone]). THIN PREP PAP - REFLEX HPV History Specimen Type: Endocervical LMP: AMENORRHEA ENLARGEMENT OF LYMPH NODE Previous Pap History: None Provided Specimen Adequacy Satisfactory for interpretation. Shows sufficient numbers of endocervical or metaplastic cells. Diagnosis NEGATIVE FOR INTRAEPITHELIAL LESION OR MALIGNANCY. (Prevously noted as Within Normal Limits). Jazz Singer/ EDR Pathologist: 01/20/13 Completed by: RAMAKRISHNA HARDY BSCT (ASCP) (Electronically signed by) 01/20/13 Comment Routine follow-up is suggested. Important Information About Pap Smears The Pap smear is associated with a low but well-documented and probably irreducible false negative rate of up to 10%. Additionally, the false positive rate for a diagnosis of invasive carcinoma or HSIL has been estimated to be approximately 1-10%. Therefore, any visible lesion on the cervix should be biopsied regardless of Pap smear findings. HPV Testing off the Thin Prep vial can be done as a means of further evaluating a Thin Prep Report. For information about ordering the HPV test, phone Virology at . Treatment or follow-up recommendations (if any) that are contained within this report are based upon general recommendations as contained in 2001 Consensus Guidelines For Cervical Cytological Abnormalities CRESCENCIO: August 26, 2001, and are provided as a general guideline rather than as a specific recommendation. Final decisions about the most appropriate treatment and follow-up should be made on an individualized basis by the treating physician in consultation with his/her patient. [facility] 01/08/2013 1:2 4 PM CDT Luci Roque CHILI POWDER MIXER PATHOLOGY/CYTOLOGY ORDERABLES Edited Result - Final INTERFACE SYSTEM Refer to clinic/hospital department [facility] CLIA# [id number] [address] [place] [id number] from Last 3 Months or Most Recently Relevant to Health Maintenance Insurance [facility] [address] [place], [place] [address] [address] Care Teams Hvac Service Tech Relationship Specialty Start Date End Date Carmelina Muro DO [address] [place] [phone] PCP - General Family Practice 04/09/19
--- OUTSIDE RECORDS SUMMARY | 2024-12-18 11:27 | XMS_ITS | Encounter Summary ---
Author Organization [facility] Address [address] [place] [address] Care Team Providers Care Poultry Farmer Egg Name Role Phone Carmelina Muro DO Primary Care Provider [phone] Encounter Details Date Type Department Care Team (Late st Contact Info) Description 07/06/2007 Outpatient Historical [facility] [place] [address] [place] [address] Solo Warren, HAIRSPRING VIBRATOR [address] [place] [address] Social History Tobacco Use Types Packs/Day Years Used Date Smoking Tobacco: Never Assessed Comments Unknown Sex and Gender Information Value Date Recorded Sex Assigned at Not on file Legal Sex Female 4:55 AM CABIN FURNISHINGS INSTALLER Gender Identity Not on file Sexual Orientation Not on file documented as of this encounter Plan of Treatment Not on file documented as of this encounter Visit Diagnoses Not on filedocumented in this encounter Additional Health Concerns Infection Onset Date Last Indicated Resolved Time R/O COVID-19 03/23/2020 03/23/2020 03/25/2020 6:01 AM CABIN FURNISHINGS INSTALLER documented as of this encounter Care Teams Poultry Farmer Egg Relationship Specialty Start Date End Date Carmelina Muro DO [address] [place] [address] PCP - General Family Practice 04/09/19 documented as of this encounter
--- OUTSIDE RECORDS SUMMARY | 2024-12-18 11:27 | XMS_ITS | Encounter Summary ---
Author Organization [facility] Address [address] [place] [address] Care Team Providers Care Cosmetic Manager Name Role Phone Carmelina Muro DO Primary Care Provider Encounter Details Date Type Department Care Team (Latest Contact Info) Description 07/07/2000 Outpatient Historical [address] [address] Dimas Magana DO NO ADDRESS ON FILE Acute upper respiratory infections of unspecified site (Primary Dx) Social History Tobacco Use Types Packs/Day Years Used Date Smoking Tobacco: Never Assessed Comments Unknown Sex and Gender Information Value Date Recorded Sex Assigned at Not on file Legal Sex Female 4:55 AM OPERATIONS OFFICER TRUST DEPARTMENT Gender Identity Not on file Sexual Orientation Not on file documented as of this encounter Plan of Treatment Not on file documented as of this encounter Visit Diagnoses Diagnosis Acute upper respiratory infections of unspecified site- Primary documented in this encounter Additional Health Concerns Infection Onset Date Last Indicated Resolved Time R/O COVID-19 03/23/2020 03/23/2020 03/25/2020 6:01 AM OPERATIONS OFFICER TRUST DEPARTMENT documented as of this encounter Care Teams Cosmetic Manager Relationship Specialty Start Date End Date Carmelina Muro DO [address] [place] [address] PCP - General Family Practice 04/09/19 documented as of this encounter
--- OUTSIDE RECORDS SUMMARY | 2024-12-18 11:27 | XMS_ITS | Encounter Summary ---
Author Organization [facility] Address [address] [place] [address] Care Team Providers Care Vice President Of Procurement Name Role Phone Carmelina Muro Primary Care Provider [phone] Encounter Details Date Type Department Care Team (Late st Contact Info) Description 04/18/2024 Telephone [facility] Labor and Delivery [address] [place] [address] Raegan Whyte MD [address] [place] [address] Social History Tobacco Use Types Packs/Day Years [...] Sex Assigned at Female 05/21/2023 11:57 PM CASINO SURVEILLANCE OFFICER Legal Sex Female 8:57 AM CASINO SURVEILLANCE OFFICER Gender Identity Female 05/21/2023 11:57 PM CASINO SURVEILLANCE OFFICER Sexual Orientation Straight 05/21/2023 11 :57 PM CASINO SURVEILLANCE OFFICER documented as of this encounter Miscellaneous Notes * Telephone Encounter - Denia Garrison, RN - 04/18/2024 8:58 AM CST Triage Nurse Call 04/18/2024 8:58 AM Zenaida Abarca Current Physician: Dr. Gomez Whyte Estimated Date of Delivery: 06/11/24 Gestational Age: 32w2d Reason for Call: back pain/discomfort Normal movement: yes Contractions Present: unknown Leaking Present: denies Vaginal Bleeding: no Harpster: No Last Vaginal Exam: Complications with : Cerclage Relevant Medical History: Active Problems: * No active hospital problems. 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 H90.71 Right asymmetrical SNHL [id number] Tinnitus, right H93.11 Meniere disease, right H81.01 Migraine with aura and with status migrainosus, not intractable G43.101 Cigarette dependence F17.210 History of delivery Z98.891 History of pre-term labor Z87.51 History of unexplained stillbirth Z87.59 Supervision of high risk in second trimester O09.92 Multigravida Z64.1 Hx of uterine surgery affecting current O34.29 Not immune to rubella Z78.9 Encounter for repeat ultrasound of pyelectasis in [place] , antepartum O35.EXX0 Short cervix N88.3 Status post fall Z91.81 28 weeks gestation of Z3A.28 Past Medical History: Diagnosis Date Anxiety Asthma, mild intermittent, poorly controlled Chlamydia GERD (gastroesophageal reflux disease) Headache Hearing reduced History of abnormal cervical Pap smear Nocturnal enuresis Otitis media If Covid/flu symptoms add .COVIDFLUOBTRIAGESYMPTOMSCREEN Advice Given:Pt states she has had back discomfort since placing her last dose of vaginal progesterone yesterday afternoon. Pain hasn't increased in frequency or intensity and patient states she is unable to time it. RN advised pt to take tylenol, PO hydration, and position changes. RN requests that pt lay down and time discomfort and if she notices that it is coming every 7-10 min for an hour after interventions to call or come to triage for evaluation. Pt verbalized understanding. Denia Garrison RN NO SURVEILLANCE OFFICER documented in this encounter Plan of Treatment Upcoming Encounters Date Type Department Care Team (Late st Contact Info) Description 12/28/2024 2:00 PM CDT visit [facility] Anshul Corea [place] [address] [place] [address] Yolis Tasharubio Valdivia, DANDRE [address] [place] [address] 01/07/2025 1:00 PM CDT Procedure visit [facility] Aud[facility] [address] [place] [address] Kalee Ochoa, AULázaroD [address] [place] [address] 01/07/2025 3:40 PM CDT Office Visit [facility] Th[facility] [address] [place] [address] Lb Milton, REGIONAL SALES ENGINEER [address] [place] [address] 01/18/2025 7:30 AM CDT Ancillary Procedure [facility] Maternal and Medicine [address] [address] Raegan Whyte MD [address] [place] [address] Unruly Aparicio II, MD [address] [place] [address] 01/18/2025 8:00 AM CDT Initial [facility] [address] [place] [address] Raegan Whyte MD [address] [place] [address] Unruly Aparicio II, MD [address] [facility] [address] [place] [address] 01/20/2025 11:45 AM CDT visit [facility] Anshul [place] [address] [place] [address] Raegan Whyte MD [address] [place] [address] 02/01/2025 1:45 PM CDT Ancillary Procedure [facility] [address] [place] [address] Raegan Whyte MD [address] [place] [address] Unruly Aparicio II, MD [address] [place] [address] [place] [address] 02/15/2025 9:30 AM CDT Ancillary Procedure [facility] Medicine [address] [address] Raegan Whyte MD [address] [place] [address] 02/15/2025 10:00 AM CDT visit [facility]aternal [facility] Medicine [address] [address] Raegan Whyte MD [address] [place] [address] Unruly Aparicio II, MD [address] [place] [address] [place] [id number] 03/01/2025 12:45 PM CDT Ancillary Procedure [facility] Maternal [facility] Medicine [place] [address] [place] [address] Raegan Whyte MD [address] [facility] [address] [place] [address] Unruly Aparicio II, MD [address] [place] [address] documented as of this encounter Visit Diagnoses Not on filedocumented in this encounter Care Teams Vice President Of Procurement Relationship Specialty Start Date End Date Carmelina Muro DO [address] [place] [phone] PCP - General 07/26/20 documented as of this encounter
--- OUTSIDE RECORDS SUMMARY | 2024-12-18 11:27 | XMS_ITS | Encounter Summary ---
Author Organization [facility] Address [address] [place] [address] Care Team Providers Care Psych Social Worker Name Role Phone Carmelina Muro DO Primary Care Provider [phone] Encounter Details Date Type Department Care Team (Latest Contact Info) Description 03/14/2004 Outpatient Historical [facility] [address] [place] [address] Brad Flores MD [address] [place] [address] ASTHMA UNSPECIFIED (Primary Dx) Social History Tobacco Use Types Packs/Day Years Used Date Smoking Tobacco: Never Assessed Comments Unknown Sex and Gender Information Value Date Recorded Sex Assigned at Not on file Legal Sex Female 4:55 AM TELEVISION INSPECTOR Gender Identity Not on file Sexual Orientation Not on file documented as of this encounter Plan of Treatment Not on file documented as of this encounter Visit Diagnoses Diagnosis Unspecified asthma(493.90)- Primary Unspecified asthma documented in this encounter Additional Health Concerns Infection Onset Date Last Indicated Resolved Time R/O COVID-19 03/23/2020 03/23/2020 03/25/2020 6:01 AM TELEVISION INSPECTOR documented as of this encounter Care Teams Psych Social Worker Relationship Specialty Start Date End Date Carmelina Muro DO [address] [place] [address] PCP - General Family Practice 04/09/19 documented as of this encounter
[2024-12-18 11:30] VITALS: BP 150/93; PULSE 93; RESP 17; TEMP 37.1; O2SAT 99; BMI 27.4
[2024-12-18 11:39] VITALS: BP 150/93; PULSE 78; RESP 18; O2SAT 98
--- NOTE | 2024-12-18 11:41 | USR_ITS ---
PROCEDURE INFORMATION: Exam: US First Trimester, Transabdominal and US , Transvaginal Exam date and time: 12/18/2024 12:13 PM Age: 29 years old Clinical indication: Condition or disease; Lmp or gestational age (weeks): 11w2d per patient; Other: Bleeding cramping; 4th ; ; No heart tones LABS AND CLINICAL REPORTS: Last menstrual period start date: Unknown Gestational age (Established): 11 w 2 d Estimated due date (Established): 07/07/2025 TECHNIQUE: Imaging protocol: Real-time transabdominal obstetrical ultrasound of the maternal pelvis and a first trimester , less than 14 weeks 0 days, with image documentation. Transvaginal imaging was used for better evaluation of the fetus, adnexa, and/or cervix. COMPARISON: CT abdomen pelvis w con* [id number] 07/08/2024 5:40 AM FINDINGS: GESTATION: Gestation: Single intrauterine gestation. Embryo/ cardiac activity (BPM): No heart rate is documented. Extra-embryonic membranes/Placenta: There is a small subchorionic bleed. Amniotic/Chorionic fluid: Amniotic and extra-amniotic fluid are normal for gestational age. BIOMETRY: Gestational age (AUA): Eight weeks and 4 days. Aspers rump length (CRL): 2.02 cm. MATERNAL: Uterus: Unremarkable. Cervix: Cervical length measures 3.3 cm. Fluid is seen in the cervix. Right ovary/adnexa: The right ovary measures 3.5 x 1.9 x 1.8 cm. There is a 1.4 x 1.5 x 2.8 cm cyst in the right ovary. Left ovary/adnexa: The left ovary measures 2.5 x 2.2 x 2.7 cm. Intraperitoneal space: No intraperitoneal free fluid. US/US OB <=14 wk fetus w transvag IMPRESSION: Intrauterine with no heart rate documented, suggestive of demise.
--- NOTE | 2024-12-18 11:53 | ED_ITS ---
HPI - Female Genitourinary 2 General: Chief complaint: Vaginal Bleeding Stated complaint: spotting (11wkspreg) Time Seen by Provider: 12/18/24 11:31 History of Present Illness: Chief complaint is vaginal bleeding at 11 weeks . Starts at 1230 this morning. Date of Last Menstrual Period: 09/28/24 Related Data Home Medications ?Medication ?Instructions ?Recorded ?Confirmed acetaminophen 500 mg tablet 500 mg PO QID PRN Pain 12/18/24 (Tylenol Extra Strength) Allergies Allergy/AdvReac Type Severity Reaction Status Date / Time house dust Allergy Intermediate wattery Verified 01/30/24 10:10 eyes lactose Allergy Intermediate diahrrea Verified 01/30/24 10:10 [facility] ED 2 PFS: Medical History (Updated 12/18/24 @ 15:24 by Abdullahi Clark MD) Psychiatric care Asthma Diagnosed as a child and she used inhalers and nebulizers. Denies any hospitalizations or intubations for asthma. Uses her inhaler once or twice a month-worse during allergy season and when it is very hot. 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 She also does therapy there. Surgical History (Updated 07/09/24 @ 00:00 by RAMBO Richter) History of excision of pilonidal cyst Hx of section (~08/23/16) 08/23/2016 Primary low transverse delivery on 08/23/[address] Ontiveros at [facility]. Patient was 32 weeks and presented to labor and delivery in labor and made cervical change from 5 cm to 8 cm in one hour. As baby was breech delivery was performed. Abnormal uterus was noted at time of . Right cavity of uterus appeared to be not present and only the left side of the uterine cavity was noted. Normal tubes and ovaries bilaterally. Baby girl weighing 3 lbs. 3 oz. was born and should to [place]. Baby's head was laterally compressed likely secondary to the cavity shape. Hx of tonsillectomy (~2009) And Adinoids Family History Grandmother Uterine cancer Paternal--dx age 30's Diabetes paternal Family/Other Uterine cancer Paternal Aunt---dx age 40's Family/Other Uterine cancer Paternal Cousin--dx age 20's Grandfather Stroke Paternal Diabetes paternal Father Hypertension Denies family history of Colon cancer Ovarian cancer Heart disease Hypercholesteremia Breast cancer Thyroid disease Social History Smoking and tobacco/nicotine status: unknown if used tobacco/nicotine Female Reproductive History: Date of last menstrual period: 09/28/24 Physical Exam 2 Narrative: EXAM NARRATIVE: Alert oriented anxious. Neck is supple. Skin is warm and dry. Moist mucous membranes. Normal conjunctiva. Heart is regular rhythm and lung sounds are clear abdomen soft nontender with no guarding or rebound. No tenderness of her back. Extremities warm well-perfused. No calf tenderness or pitting edema. Shows ability to reason. Speech is clear. Moves her arms and legs freely. No evident weakness. No facial droop. Neck is supple. Course 2 Vital Signs: Vital signs: Vital Signs Temperature 98.8 F 12/18/24 11:30 Pulse Rate 78 12/18/24 11:39 Respiratory Rate 18 12/18/24 11:39 Blood Pressure 117/77 12/18/24 13:16 Pulse Oximetry 100 12/18/24 14:14 Oxygen Delivery Me thod Room Air 12/18/24 14:14 MDM - Female Medical Decision Making Patient presents complaining that she is 11 weeks and at 1230 this morning started having some vaginal bleeding that she states was heavy initially and then has slowed down to spotting and has resolved since 8:00 this morning. She had some associated cramping in the suprapubic region. Right now she states she is not having any pain. No fever. No current bleeding. She states this is her fourth and she had a stillbirth with her first, she had premature delivery with her second and had a cerclage with her third and sees [facility] with her pregnancies because of this. She is sexually active but states there is no traumatic injury. She denies any dysuria. Denies feeling lightheaded or dizzy. I do not have record available at this time of her blood type. Will get CBC CMP ABO Rh, urinalysis, beta-hCG and pelvic ultrasound. Viable IUP, miscarriage, ectopic, subchorionic hemorrhage, broad differential. Patient denies any leg pain or swelling or vomiting. Abdominal exam not suggestive of appendicitis or GI cause. Urinalysis ordered as well. She denies urinary symptoms however. I ordered 1 L normal saline IV fluid bolus. hCG is elevated. Urinalysis has contamination and blood but not suggestive of infection combined with no urinary symptoms. White count is 11.98. Creatinine 0.4. Patient ultrasound did not show heart beat concerning for intrauterine demise per report. Patient additionally reports being over 11 weeks but measurements on ultrasound were 8 weeks. This is concerning for intrauterine demise. Patient advised limits of ultrasound and need for close OB follow-up. She is not having pain or bleeding currently. Advised risk of significant bleeding requiring D&C and further intervention among other potential concerns and signs symptoms of concern to watch and return for prompt follow-up with OB. Patient blood type is Rh+. Patient agrees with plan after informed discussion. Lab Data 12/18/24 11:55 12/18/24 11:55 Radiology Impressions Obstetrics Ultrasound 12/18/24 11:41 IMPRESSION: Intrauterine with no heart rate documented, suggestive of demise. Laboratory Results WBC 11.98 10^3/uL (3.29-11.43) H 12/18/24 11:55 RBC 4.33 10^6/uL (3.85-5.65) 12/18/24 11:55 Hgb 12.90 g/dL (11.27-16.99) 12/18/24 11:55 Hct 37.7 % (36-47) 12/18/24 11:55 MCV 87.1 fl (85-98) 12/18/24 11:55 MCH 29.8 pg (27-33) 12/18/24 11:55 MCHC 34.2 g/dL (30-55) 12/18/24 11:55 RDW 13.2 % (12.1-15.1) 12/18/24 11:55 Plt Count 332 10^3/cmm (157-399) 12/18/24 11:55 MPV 9.2 fL (7.4-10.4) 12/18/24 11:55 Neut % (Auto) 66.2 % 12/18/24 11:55 Lymph % (Auto) 23.8 % 12/18/24 11:55 [place] % (Auto) 6.8 % 12/18/24 11:55 Eos % (Auto) 2.6 % 12/18/24 11:55 Baso % (Auto) 0.3 % 12/18/24 11:55 Neut # (Auto) 7.92 10^3/uL (1.8-7.7) H 12/18/24 11:55 Lymph # (Auto) 2.9 10^3/uL (0.8-4.8) 12/18/24 11:55 [place] # (Auto) 0.8 10^3/uL (0.2-0.9) 12/18/24 11:55 Eos # (Auto) 0.3 10^3/uL (0.0-0.8) 12/18/24 11:55 Baso # (Auto) 0.0 10^3/uL (0.0-0.1) 12/18/24 11:55 Nucleated RBC % (auto) 0 % 12/18/24 11:55 Nucleated RBCs # 0.0 /100WBC 12/18/24 11:55 Sodium 139 mmol/L (136-145) 12/18/24 11:55 Potassium 3.7 mmol/L (3.5-5.1) 12/18/24 11:55 Chloride 106 mmol/L (98-107) 12/18/24 11:55 Carbon Dioxide 20 mmol/L (22-29) L 12/18/24 11:55 Anion Gap 16.7 (5-19) 12/18/24 11:55 BUN 5 mg/dL (6-20) L 12/18/24 11:55 Creatinine 0.4 mg/dL (0.5-0.9) L 12/18/24 11:55 GFR Calculation 190.1 mL/min (90-130) H 12/18/24 11:55 Glucose 116 mg/dL (65-115) H 12/18/24 11:55 Calculated Osmolality 286 mOsm/kg (285-295) 12/18/24 11:55 Calcium 8.9 mg/dL (8.5-10.5) 12/18/24 11:55 Total Bilirubin 0.2 mg/dL (0.15-1.2) 12/18/24 11:55 AST 10 U/L (0-32) 12/18/24 11:55 ALT 9 U/L (0-33) 12/18/24 11:55 Alkaline Phosphatase 61 U/L (35-105) 12/18/24 11:55 Total Protein 6.9 g/dL (6.6-8.7) 12/18/24 11:55 Albumin 4.2 g/dL (3.5-5.2) 12/18/24 11:55 Globulin 2.7 g/dL (1.3-4.6) 12/18/24 11:55 Ser , Semi-Qnt 5586.00 mIU/mL 12/18/24 11:55 Urine Color Dark yellow (Yellow) A 12/18/24 11:55 Urine Appearance Clear (CLEAR) 12/18/24 11:55 Urine pH 5.5 (5-7) 12/18/24 11:55 Ur Specific [place] 1.025 (1.005-1.030) 12/18/24 11:55 Urine Protein Trace (Negative) A 12/18/24 11:55 Urine Glucose (UA) Negative (Normal) 12/18/24 11:55 Urine Ketones Trace (Negative) 12/18/24 11:55 Urine Blood 3+ (Negative) A 12/18/24 11:55 Urine Nitrate Negative (Negative) 12/18/24 11:55 Urine Bilirubin Negative (Negative) 12/18/24 11:55 Urine Urobilinogen 1.0 mg/dL (Negative) 12/18/24 11:55 Ur Leukocyte Esterase Negative (Negative) 12/18/24 11:55 Urine RBC 25-40 /hpf (0-2) H 12/18/24 11:55 Urine WBC 0-4 /hpf (0-5) H 12/18/24 11:55 Ur Squamous Epith Cells 5-10 /hpf (0-5) H 12/18/24 11:55 Amorphous Sediment Not Reportable 12/18/24 11:55 Urine Bacteria 2+ /hpf (NONE) H 12/18/24 11:55 Blood Type A Positive 12/18/24 13:29 Rho(D) Type Rh positive 12/18/24 13:29 All radiology interpretation(s) finalized by discharge Discharge Plan Discharge Patient Disposition: Home Clinical Impression: Vaginal bleeding Condition: Stable Prescriptions: No Action acetaminophen [Tylenol Extra Strength] 500 mg Tablet 500 mg PO QID PRN (Reason: Pain) Discharge Orders: Discharge ED (Routine); Ordered 12/18/24 Ordered By: Abdullahi Clark Referrals: Law Osorio FNP [Primary Care Provider] Patient Instructions: Opioid Safety, Pain Management, Patient Portal & Waqar Instructions Activity Restrictions/Additional Instructions: As discussed your ultrasound did not show a heartbeat and miscarriage is most likely. Please call your OB for follow-up in the next 2 to 3 days. Please come back if excessive bleeding or pain or lightheadedness or dizziness or any worse or concerns as discussed. Follow-up on your test results with your doctor Print Language: Portuguese Coding Level of Care Code ED Box Press Operator for Sergei Martinez
[2024-12-18 12:08] LABS: Hematocrit 37.7 % (36-47); Hemoglobin 12.90 g/dL (11.27-16.99); Mean Corpuscular HGB Conc 34.2 g/dL (30-55); Mean Corpuscular Hemoglobin 29.8 pg (27-33); Mean Corpuscular Volume 87.1 fl (85-98); Nucleated Red Blood Cells % 0 %; Platelet Count 332 10^3/cmm (157-399); Red Blood Count 4.33 10^6/uL (3.85-5.65); White Blood Count 11.98 10^3/uL (3.29-11.43)
[2024-12-18 12:21] VITALS: BP 150/93
[2024-12-18 12:35] LABS: Alanine Aminotransferase 9 U/L (0-33); Albumin Level 4.2 g/dL (3.5-5.2); Alkaline Phosphatase 61 U/L (35-105); Anion Gap 16.7 (5-19); Aspartate Amino Transferase 10 U/L (0-32); Blood Urea Nitrogen 5 mg/dL (6-20); Calcium 8.9 mg/dL (8.5-10.5); Carbon Dioxide 20 mmol/L (22-29); Chloride 106 mmol/L (98-107); Creatinine Clr Calc Pharmacy 189.3277; Globulin 2.7 g/dL (1.3-4.6); Glucose 116 mg/dL (65-115); Osmolality Calculated 286 mOsm/kg (285-295); Potassium 3.7 mmol/L (3.5-5.1); Sodium 139 mmol/L (136-145); Total Protein 6.9 g/dL (6.6-8.7)
[2024-12-18 12:43] LABS: Glucose Urine UA Negative (Normal); Nitrate Urine Negative (Negative); Specific Gravity, Urine 1.025 (1.005-1.030)
[2024-12-18 12:53] LABS: Add Urine Microscopic? YES; UA Manual Slide Review YES
[2024-12-18 13:16] VITALS: BP 117/77; O2SAT 100
[2024-12-18 13:45] VITALS: O2SAT 100
[2024-12-18 14:14] VITALS: O2SAT 100
== END 2024-12-18 15:38 | disposition home or self-care (01) ==
PROVIDERS: Emergency Provider Emergency Medicine; PCP Nurse Practitioner Family
DX: N93.9 Abnormal uterine and vaginal bleeding, unspecified (principal)
CPT/HCPCS: 76801; 76817; 80053; 81001; 84702; 85025; 86900; 87086; 99284; J7030